=== PATIENT | male | born 1940 | race Caucasian/White ===

== ENCOUNTER 2016-05-26 15:18 | Emergency (ER) | payer MEDICARE, OTHER ==
[~2016-05-26] VITALS: Ht 180.3 cm; Wt 78.9 kg
[~2016-05-26 15:18] MED LIST: ASCO500T20 PO; ASP325T PO; ASP81TEC PO; CHOL10003 PO; DORZ10DR19 OU; DORZOLAMIDE OU; MU-V1TAB28 PO; OMEP20CA12 PO; OMEP20TA2 PO; OMEP40CA36 PO; SMV20T PO; TRAV5DRO OU; VITA150T PO
[2016-05-26 16:06] LABS: BASOPHILS % (AUTO) 0 % (0-10); EOSINOPHILS # (AUTO) 0.1 10^3/uL (0.0-0.3); EOSINOPHILS % (AUTO) 1 % (0-10); LYMPHOCYTES # (AUTO) 2.4 X 10^3 (1.0-4.0); LYMPHOCYTES % (AUTO) 20 % (12-44); MEAN CORPUSCULAR HEMOGLOBIN 32 PG (25-34); MEAN CORPUSCULAR HGB CONC 34 G/DL (32-36); MEAN CORPUSCULAR VOLUME 95 FL (80-99); MEAN PLATELET VOLUME 9.7 FL (7.4-10.4); MONOCYTES # (AUTO) 0.7 X 10^3 (0.0-1.0); MONOCYTES % (AUTO) 6 % (0-12); NEUTROPHILS # (AUTO) 8.6 X 10^3 (1.8-7.8); NEUTROPHILS % (AUTO) 73 % (42-75); PLATELET COUNT 235 10^3/uL (130-400); RED BLOOD COUNT 4.39 10^6/uL (4.35-5.85); RED CELL DISTRIBUTION WIDTH 14.3 % (10.0-14.5); WHITE BLOOD COUNT 11.8 10^3/uL (4.3-11.0)
--- NOTE | 2016-05-26 16:08 | ED Abdominal Pain ---
General Chief Complaint: Abdominal/GI Problems Stated Complaint: ABD TIGHTNESS/PAIN Source of Information: Patient Exam Limitations: No Limitations (FLORIN SANTOS MD) History of Present Illness Time Seen By Provider: 15:42 Initial Comments Here with a couple days of abdominal pain that is worsened and a tightness. He try to naproxen overnight which usually helps out his diverticulitis. That did not help. The tightness worsened today and he began to be concerned about his aortic aneurysm that he's had repaired previously. Really just wanted to get that checked out. He is not concerned about diverticulitis as it will normally respond to naproxen and he is willing to see his primary care provider on Sunday. Denies fever or chills. Had a normal bowel movement without blood today. Timing/Duration: 1-2 Days Severity/Quality: Moderate, Aching, Other (tightness) Location: Generalized Abdomen Radiation: No Radiation Activities at Onset: None Associated Symptoms: No Back Pain, No Fever/Chills, No Nausea/Vomiting, No Weakness (FLORIN SANTOS MD) Allergies and Home Medications Allergies Coded Allergies: ciprofloxacin (Unverified Adverse Reaction, "MADE ME FEEL TERRIBLE", 04/21) metronidazole (Unverified Adverse Reaction, "MADE ME FEEL TERRIBLE", 04/21) Home Medications Ascorbic Acid 500 Mg Tablet 500 MG PO DAILY (Reported) Aspirin 81 Mg Tabec 162 MG PO EVERY OTHER NIGHT (Reported) TAKES (2) 81MG TABS EVERY OTHER NIGHT Aspirin 325 Mg Tab 325 MG PO EVERY OTHER NIGHT (Reported) TAKES OPPOSITE NIGHTS OF THE 81MG TABS Cholecalciferol 1,000 Unit Tablet 1,000 UNIT PO DAILY (Reported) Mu-Vits-Min Th/Lycopene/Lutein 1 Each Tablet 1 TAB PO (Reported) Omeprazole 20 Mg Capsule.dr 40 MG PO DAILY (Reported) TAKES (2) 20 MG TABS DAILY Simvastatin 20 Mg Tab 20 MG PO HS (Reported) Timolol Maleate/Dorzolam Hcl 10 Ml Drops 2 DROPS OU BID (Reported) Travoprost 5 Ml Drops 1 DROP OU HS (Reported) Vitamin B Complex & Vit C No.4 150 Mg Tablet 150 MG PO DAILY (Reported) Review of Systems Constitutional: see HPINo chills, No fever EENTM: No Symptoms Reported Respiratory: No Symptoms Reported Cardiovascular: No Symptoms Reported Gastrointestinal: See HPI Abdominal PainDenies Nausea, Denies Rectal Bleeding , Denies Vomiting Genitourinary: No Symptoms Reported Musculoskeletal: no symptoms reported Skin: no symptoms reported Psychiatric/Neurological: No Symptoms Reported (FLORIN SANTOS MD) All Other Systems Reviewed Negative Unless Noted: Yes (FLORIN SANTOS MD) Past Cujrifw-Insaym-Vvxwvh Hx Patient Social History Alcohol Use: Occasionally Uses Recreational Drug Use: No Recent Foreign Travel: No Contact w/Someone Who Travel: No (FLORIN SANTOS MD) Immunizations Up To Date Date of Influenza Vaccine: Feb 28, 2013 (FLORIN SANTOS MD) Surgeries HX Surgeries: Yes Surgeries: Abdominal (FLORIN SANTOS MD) Respiratory Hx Respiratory Disorders: No (FLORIN SANTOS MD) Cardiovascular Hx Cardiac Disorders: Yes (FLORIN SANTOS MD) Neurological Hx Neurological Disorders: No (FLORIN SANTOS MD) Gastrointestinal Hx Gastrointestinal Disorders: Yes (DIVERTICULOSIS, HX COLON POLYPS) (FLORIN SANTOS MD) Musculoskeletal Hx Musculoskeletal Disorders: No (FLORIN SANTOS MD) Endocrine Hx Endocrine Disorders: No (FLORIN SANTOS MD) HEENT HX ENT Disorders: No (FLORIN SANTOS MD) Blood Transfusions Hx Blood Disorders: No (FLORIN SANTOS MD) Reviewed Nursing Assessment Reviewed/Agree w Nursing PMH: Yes (FLORIN SANTOS MD) Family Medical History Significant Family History: No Pertinent Family Hx (FLORIN SANTOS MD) Physical Exam Vital Signs Capillary Refill : (FLORIN SANTOS MD) General Appearance: WD/WN no apparent distress HEENT: PERRL/EOMI pharynx normal Neck: full range of motion supple Respiratory: lungs clear normal breath sounds Cardiovascular: regular rate, rhythm no murmur Peripheral Pulses: 2+ Dorsalis Pedis (R), 2+ Left Dors-Pedis (L), 2+ Radial Pulses (R), 2+ Radial Pulses (L) Gastrointestinal: non tender soft Extremities: non-tender normal inspection Back: normal inspection no vertebral tenderness Neurologic/Psychiatric: alert oriented x 3 Skin: normal color warm/dry (FLORIN SANTOS MD) Progress/Results/Core Measures Results/Orders Lab Results Laboratory Tests Test 05/26/16 15:00 Range/Units Alanine Aminotransferase (ALT/SGPT) 12 0-55 U/L Albumin 4.2 3.2-4.5 G/DL Alkaline Phosphatase 55 40-136 U/L Anion Gap 9 5-14 MMOL/L Aspartate Amino Transf (AST/SGOT) 13 5-34 U/L BUN/Creatinine Ratio 16 Basophils # (Auto) 0.0 0.0-0.1 10^3/uL Basophils (%) (Auto) 0 0-10 % Blood Urea Nitrogen 19 H 7-18 MG/DL Calcium Level 9.8 8.5-10.1 MG/DL Carbon Dioxide Level 24 21-32 MMOL/L Chloride Level 107 98-107 MMOL/L Creatinine 1.18 0.60-1.30 MG/DL Eosinophils # (Auto) 0.1 0.0-0.3 10^3/uL Eosinophils (%) (Auto) 1 0-10 % Estimat Glomerular Filtration Rate 60 Glucose Level 99 70-105 MG/DL Hematocrit 42 40-54 % Hemoglobin 14.0 13.3-17.7 G/DL Lymphocytes # (Auto) 2.4 1.0-4.0 X 10^3 Lymphocytes (%) (Auto) 20 12-44 % Mean Corpuscular Hemoglobin 32 25-34 PG Mean Corpuscular Hemoglobin Concent 34 32-36 G/DL Mean Corpuscular Volume 95 80-99 FL Mean Platelet Volume 9.7 7.4-10.4 FL Monocytes # (Auto) 0.7 0.0-1.0 X 10^3 Monocytes (%) (Auto) 6 0-12 % Neutrophils # (Auto) 8.6 H 1.8-7.8 X 10^3 Neutrophils (%) (Auto) 73 42-75 % Platelet Count 235 130-400 10^3/uL Potassium Level 3.9 3.6-5.0 MMOL/L Red Blood Count 4.39 4.35-5.85 10^6/uL Red Cell Distribution Width 14.3 10.0-14.5 % Sodium Level 140 135-145 MMOL/L Total Bilirubin 0.4 0.1-1.0 MG/DL Total Protein 7.1 6.4-8.2 G/DL White Blood Count 11.8 H 4.3-11.0 10^3/uL (ABDIFATAH KELLER MD) Progress Note : Progress Note Seen and evaluated. IV, labs and formal ultrasound ordered. Bedside ultrasound did not show any significant findings but we will get formal ultrasound to evaluate further given his history. Patient really would like to avoid CT scan if possible and just wants to rule out aortic aneurysm. He is okay with checking labs and ultrasound and is open to suggestion based on that data. Care transferred to Dr. KELLER at 1605. (FLORIN SANTOS MD) Departure Communication Progress Notes 1725 the patient is a 75-year-old male who presented with the abdominal pain after he arose this morning. He was concerned as it persisted that he was having trouble with his graft placed for a aortic aneurysm 4-5 years ago. However he has also had problems with diverticulitis on a fairly frequent basis. He normally treats these with naproxen. He did not particularly wish to have a CT scan done. Dr. Santos had done a abdominal sonogram but was unable to satisfactorily visualize the aorta because of bowel gas. Accordingly he sent the patient for a full scan in radiology. The results were not much better. The aorta was not satisfactorily visualized. After discussing this with the patient he still prefers not to have a CT scan and wishes to go home to try his naproxen based treatment schedule. The abdomen remains soft without guarding or rebound. There is diastasis of the rectus muscle. Bowel sounds are present. (ABDIFATAH KELLER MD) Impression Impression: Primary Impression: abdominal pain Disposition: 01 HOME, SELF-CARE Condition: Stable/Unchanged Departure-Patient Inst. Decision time for Depature: 17:30 (ABDIFATAH KELLER MD) Referrals: LIZZIE ESPITIA DO (PCP/Family) Primary Care Physician Patient Instructions: Acute Abdomen (Belly Pain), Adult (DC) Add. Discharge Instructions: All discharge instructions reviewed with patient and/or family. Voiced understanding. Resume your previous regimen including naproxen. If pain increases return to the ER. FLORIN SANTOS MD May 26, 2016 16:08 ABDIFATAH KELLER MD May 26, 2016 17:31
[2016-05-26 16:28] LABS: ALBUMIN 4.2 G/DL (3.2-4.5); BILIRUBIN,TOTAL 0.4 MG/DL (0.1-1.0); CALCIUM 9.8 MG/DL (8.5-10.1); CREATININE SERUM 1.18 MG/DL (0.60-1.30); POTASSIUM 3.9 MMOL/L (3.6-5.0); TOTAL PROTEIN 7.1 G/DL (6.4-8.2)
--- NOTE | 2016-05-26 16:59 | Diagnostic Imaging Report ---
PROCEDURE: US abdomen complete. TECHNIQUE: Multiple real-time grayscale images were obtained over the abdomen in various projections. INDICATION: Right upper quadrant pain. FINDINGS: Liver is upper limits of normal measuring 19 cm in long axis. There is question of some intrahepatic biliary radical dilatation. No focal liver lesions are demonstrated. Gallbladder appears normal with no wall thickening or pericholecystic edema. There is a large amount of gas obscuring the majority of the remainder of the abdomen. The kidneys are visualized and appear normal measuring approximately 10 x 5.3 x 5.5 cm on the right and 10 x 5.9 x 5.6 cm on the left. IMPRESSION: Very limited study due to large amount of abdominal gas. There is question of some intrahepatic biliary duct dilatation. Would consider CT scan of the abdomen and pelvis. Dictated by: Dictated on workstation # [id number]
[2016-05-26 17:41] VITALS: BP 141/94
== END 2016-05-26 17:45 | disposition home or self-care (01) ==
LOC: EDUNIT# 15:18 → ER 15:19
DX: R10.30 Lower abdominal pain, unspecified (principal); K57.30 Diverticulosis of large intestine without perforation or abscess without bleeding; Z79.82 Long term (current) use of aspirin; Z79.899 Other long term (current) drug therapy; Z95.828 Presence of other vascular implants and grafts
CPT/HCPCS: 36415; 76700; 80053; 85025

== ENCOUNTER → 2017-09-04 | Outpatient (CLI) | payer MEDICARE, OTHER ==
[~2017-09-04] MED LIST changes: +LISI10TA2 PO; +METO-351 PO
== END ==
LOC: CARD 09:58
PROVIDERS: ATTEND Internal Medicine
DX: R00.2 Palpitations (principal)
CPT/HCPCS: 93225; 93226

== ENCOUNTER 2017-09-11 15:00 | Outpatient (CLI) | payer MEDICARE, OTHER ==
[~2017-09-11 15:00] MED LIST changes: -LISI10TA2 PO; -METO-351 PO
== END 2017-09-11 15:42 | disposition home or self-care (01) ==
LOC: SLEEP 15:00
PROVIDERS: ATTEND Internal Medicine
DX: G47.10 Hypersomnia, unspecified (principal)

== ENCOUNTER → 2017-09-18 | Outpatient (CLI) | payer MEDICARE, OTHER ==
[~2017-09-18] MED LIST changes: +LISI10TA2 PO; +METO-351 PO
== END ==
LOC: CARD 09:24
PROVIDERS: ATTEND Internal Medicine Cardiovascular Disease
DX: I47.2 Ventricular tachycardia (principal); E78.2 Mixed hyperlipidemia; I71.4 Abdominal aortic aneurysm, without rupture; K21.9 Gastro-esophageal reflux disease without esophagitis; I08.1 Rheumatic disorders of both mitral and tricuspid valves; Z82.3 Family history of stroke
CPT/HCPCS: 93306

== ENCOUNTER → 2017-09-26 | Outpatient (CLI) | payer MEDICARE, OTHER ==
[~2017-09-26] VITALS: Ht 180.3 cm; Wt 88.5 kg
[~2017-09-26] MED LIST changes: +CATHETER FLUSH 10 ML SYR IV PRN
[2017-09-26 09:09] VITALS: BP 152/85
[2017-09-26 09:17] VITALS: BP 162/98
[2017-09-26 09:19] VITALS: BP 233/105
[2017-09-26 09:22] VITALS: BP 177/102
--- NOTE | 2017-09-26 17:13 | STRESS TEST ---
DATE OF SERVICE: 09/26/2017 EXERCISE MYOVIEW STRESS TEST REPORT REFERRING PHYSICIAN: Dr. Ley. TEST DATE: 09/26/2017. Baseline heart rate is 61, baseline blood pressure 152/85. Baseline EKG is sinus rhythm with right bundle branch block. In summary, the patient was injected with 10.61 mCi of technetium-99 Myoview and the resting images were obtained. Then, the patient started exercising with a baseline heart rate, blood pressure and EKG mentioned above. The patient started having frequent PVCs, had occasional ventricular couplets and ventricular bigeminy. At peak stress level, he was injected with 30.0 mCi of technetium-99 Myoview. The patient was able to exercise for a total of 5 minutes on standard Trevor protocol, achieving maximum heart rate of 143, which is 100% of maximum expected heart rate. With peak exercise level, blood pressure was 243/112. During recovery, heart rate and blood pressure returned to baseline. EKG returned to baseline. The resting and stress images were reviewed and compared in the short axis, horizontal long axis, and vertical long axis views. Review of the images showed decreased uptake involving the mid to apical inferior wall, inferolateral wall and through apex with mild reversibility. SSS is 10, SDS 1, TID value 1.06. On the gated images, the left ventricle appeared to be dilated with end diastolic volume 153 and systolic volume 87, hypokinesia at the inferior wall and inferolateral wall with calculated ejection fraction 43%. CONCLUSION: 1. Fair exercise tolerance, a total of 5 minutes on a standard Trevor protocol, total of 7 METS achieving 100% of maximum expected heart rate. 2. Severe hypertensive response to exercise, returned to baseline during recovery. 3. Baseline right bundle branch block with frequent PVCs, ventricular bigeminy and ventricular couplets during test. 4. Reversal ischemia involving the whole inferior wall, inferolateral wall, inferior apex, true apex. 5. Dilated left ventricle with hypokinesia of the inferior wall, inferolateral wall with calculated ejection fraction 43%. Job ID: [id number] DocumentID: [id number] Dictated Date: 09/26/2017 13:43:14 Retail Zone Specialist Date: 09/26/2017 17:13:20 Dictated By: SREE CHUNG MD
== END ==
LOC: CARD 07:29
PROVIDERS: ATTEND Internal Medicine Cardiovascular Disease
DX: I47.2 Ventricular tachycardia (principal); E78.2 Mixed hyperlipidemia; I71.4 Abdominal aortic aneurysm, without rupture; K21.9 Gastro-esophageal reflux disease without esophagitis; Z82.3 Family history of stroke
CPT/HCPCS: 78452; 93017

== ENCOUNTER 2017-09-28 07:03 | Day surgery (SDC) | payer MEDICARE, OTHER ==
[2017-09-28] VITALS (10 sets, daily range): BP systolic 112–130; BP diastolic 68–95
[~2017-09-28] VITALS: Ht 180.3 cm; Wt 88.9 kg
[~2017-09-28 07:03] MED LIST changes: -CATHETER FLUSH 10 ML SYR IV PRN; -LISI10TA2 PO; -METO-351 PO
[2017-09-28] MEDS ORDERED: NS IV 1000 ML 1,000 ML IV SCH ×3 (07:07→09:37)
--- OUTSIDE RECORDS SUMMARY | 2017-09-28 07:07 | XMS REPORT | Continuity of Care Document ---
Author Author [facility] Organization [facility] Address Unknown Phone Unavailable Allergies Active Description Code Type Severity Reaction Onset Reported/Identified Relationship to Patient Clinical Status Yes ciprofloxacin [id number] Drug Allergy Unknown "MADE ME FEEL T 04/21/2013 Yes metronidazole [id number] Drug Allergy Unknown "MADE ME FEEL T 04/21/2013 Medications There is no data. Problems Date Dx Coded Attending Type Code Diagnosis Diagnosed By 08/04/2011 Ot 455.0 INT HEMORRHOID W/O COMPL 08/04/2011 Ot 455.3 EXT HEMORRHOID W/O COMPL 08/04/2011 Ot 562.10 DIVERTICULOSIS COLON (W/O MENT OF HEMORR 08/04/2011 Ot 564.00 UNSPEC CONSTIPATION 08/04/2011 Ot V12.72 PERSONAL HISTORY OF COLONIC POLYPS 08/04/2011 Ot V67.09 SURGERY FOLLOW-UP, OTHER SURGERY 05/26/2016 Ot V72.84 EXAM PRE- OPERATIVE NOS 05/26/2016 DAVY CHAND, CHRISTIE Eller Ot 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 05/26/2016 CHRISTIE BHATTI MD Ot 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 05/26/2016 CHRISTIE BHATTI MD Ot V72.63 PRE-PROCEDURAL LABORATORY EXAMINATION 05/26/2016 CHRISTIE BHATTI MD Ot V74.8 SCREEN-BACTERIAL DIS NEC 05/26/2016 FLORIN SANTOS MD Ot K57.30 DVRTCLOS OF LG INT W/O PERFORATION OR AB 05/26/2016 FLORIN SANTOS MD Ot R10.30 LOWER ABDOMINAL PAIN, UNSPECIFIED 05/26/2016 FLORIN SANTOS MD Ot 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 05/26/2016 FLORIN SANTOS MD Ot Z79.899 OTHER [facility] (CURRENT) DRUG THERAPY 05/26/2016 FLORIN SANTOS MD Ot Z95.828 PRESENCE OF OTHER VASCULAR IMPLANTS AND 06/01/2016 Ot V72.84 EXAM PRE- OPERATIVE NOS 06/01/2016 CHRISTIE BHATTI MD Ot 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 06/01/2016 CHRISTIE BHATTI MD Ot 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 06/01/2016 CHRISTIE BHATTI MD Ot V72.63 PRE-PROCEDURAL LABORATORY EXAMINATION 06/01/2016 CHRISTIE BHATTI MD Ot V74.8 SCREEN-BACTERIAL DIS NEC 09/03/2017 ESPITIA DOLIZZIE Ot R00.2 PALPITATIONS 09/03/2017 ESPITIA DO, LIZZIE Beckham Ot R00.2 PALPITATIONS 09/03/2017 CHRISTIE BHATTI MD Ot 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 09/03/2017 CHRISTIE BHATTI MD Ot 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 09/03/2017 CHRISTIE BHATTI MD Ot V72.63 PRE-PROCEDURAL LABORATORY EXAMINATION 09/03/2017 CHRISTIE BHATTI MD Ot V74.8 SCREEN-BACTERIAL DIS NEC 09/03/2017 ESPITIA DOLIZZIE Ot R00.2 PALPITATIONS 09/05/2017 ESPITIA DOLIZZIE Ot R00.2 PALPITATIONS 09/13/2017 LIZZIE ESPITIA DO Ot G47.10 HYPERSOMNIA, UNSPECIFIED 09/19/2017 SREE CHUNG MD Ot E78.2 MIXED HYPERLIPIDEMIA 09/19/2017 SREE CHUNG MD Ot I08.1 RHEUMATIC DISORDERS OF BOTH MITRAL AND T 09/19/2017 SREE CHUNG MD Ot I47.2 VENTRICULAR TACHYCARDIA 09/19/2017 SREE CHUNG MD, Ot I71.4 ABDOMINAL AORTIC ANEURYSM, WITHOUT RUPTU 09/19/2017 SREE CHUNG MD Ot K21.9 GASTRO-ESOPHAGEAL REFLUX DISEASE WITHOUT 09/19/2017 SREE CHUNG MD, Ot Z82.3 FAMILY HISTORY OF STROKE Procedures There is no data. Results Test Result Range Complete blood count (CBC) with automated white blood cell (WBC) differential - 05/26/16 15:00 Blood leukocytes automated count (number/volume) 11.8 10*3/uL 4.3-11.0 Blood erythrocytes automated count (number/volume) 4.39 10*6/uL 4.35-5.85 Venous blood hemoglobin measurement (mass/volume) 14.0 g/dL 13.3-17.7 Blood hematocrit (volume fraction) 42 % 40-54 Automated erythrocyte mean corpuscular volume 95 [foz_us] 80-99 Automated erythrocyte mean corpuscular hemoglobin (mass per erythrocyte) 32 pg 25-34 Automated erythrocyte mean corpuscular hemoglobin concentration measurement ( mass/volume) 34 g/dL 32-36 Automated erythrocyte distribution width ratio 14.3 % 10.0-14.5 Automated blood platelet count (count/volume) 235 10*3/uL 130-400 Automated blood platelet mean volume measurement 9.7 [foz_us] 7.4-10.4 Automated blood neutrophils/100 leukocytes 73 % 42-75 Automated blood lymphocytes/100 leukocytes 20 % 12-44 Blood monocytes/100 leukocytes 6 % 0-12 Automated blood eosinophils/100 leukocytes 1 % 0-10 Automated blood basophils/100 leukocytes 0 % 0-10 Blood neutrophils automated count (number/volume) 8.6 10*3 1.8-7.8 Blood lymphocytes automated count (number/volume) 2.4 10*3 1.0-4.0 Blood monocytes automated count (number/volume) 0.7 10*3 0.0-1.0 Automated eosinophil count 0.1 10*3/uL 0.0-0.3 Automated blood basophil count (count/volume) 0.0 10*3/uL 0.0-0.1 Comprehensive metabolic panel - 05/26/16 15:00 Serum or plasma sodium measurement (moles/volume) 140 mmol/L 135-145 Serum or plasma potassium measurement (moles/volume) 3.9 mmol/L 3.6-5.0 Serum or plasma chloride measurement (moles/volume) 107 mmol/L 98-107 Carbon dioxide 24 mmol/L 21-32 Serum or plasma anion gap determination (moles/volume) 9 mmol/L 5-14 Serum or plasma urea nitrogen measurement (mass/volume) 19 mg/dL 7-18 Serum or plasma creatinine measurement (mass/volume) 1.18 mg/dL 0.60-1.30 Serum or plasma urea nitrogen/creatinine mass ratio 16 NRG Serum or plasma creatinine measurement with calculation of estimated glomerular filtration rate 60 NRG Serum or plasma glucose measurement (mass/volume) 99 mg/dL 70-105 Serum or plasma calcium measurement (mass/volume) 9.8 mg/dL 8.5-10.1 Serum or plasma total bilirubin measurement (mass/volume) 0.4 mg/dL 0.1-1.0 Serum or plasma alkaline phosphatase measurement (enzymatic activity/volume) 55 U/L 40-136 Serum or plasma aspartate aminotransferase measurement (enzymatic activity/ volume) 13 U/L 5-34 Serum or plasma alanine aminotransferase measurement (enzymatic activity/volume ) 12 U/L 0-55 Serum or plasma protein measurement (mass/volume) 7.1 g/dL 6.4-8.2 Serum or plasma albumin measurement (mass/volume) 4.2 g/dL 3.2-4.5 Encounters ACCT No. Visit Date/Time Discharge Status Pt. Type Provider Facility Loc./Unit Complaint [id number] 09/19/2017 11:30:00 09/19/2017 23:59:59 CLS Preadmit SREE CHUNG MD [facility] CARD AAA,GERD,V-TACH [id number] 09/18/2017 09:24:00 09/18/2017 23:59:59 CLS Outpatient SREE CHUNG MD [facility] CARD AAA,GERD,V-TACH [id number] 09/11/2017 15:00:00 09/11/2017 15:42:00 DIS Outpatient LIZZIE ESPITIA DO [facility] SLEEP HYPERSOMNIA, UNSPECIFIED G47.10 [id number] 09/04/2017 09:58:00 09/04/2017 23:59:59 CLS Outpatient LIZZIE ESPITIA DO [facility] CARD R00.2 PALPITATIONS [id number] 05/26/2016 15:19:00 05/26/2016 17:45:00 DIS Emergency FLORIN SANTOS MD [facility] ER ABD TIGHTNESS/PAIN [id number] 04/21/2013 10:22:00 04/21/2013 23:59:59 CLS Outpatient CHRISTIE BHATTI MD [facility] PREOP RIGHT SUBMANDIBULAR STONE [id number] 03/31/2013 07:45:00 03/31/2013 23:59:59 CLS Outpatient CHRISTIE BHATTI MD [facility] RAD RT SUBMANDILAR GLAND MASS [id number] 08/04/2011 09:08:00 Document Registration [id number] 08/02/2011 08:03:00 Document Registration
[2017-09-28] MEDS ORDERED: LIDOCAINE 1% INJ 20 ML 20 ML VIAL ONE (07:09)
[2017-09-28] MEDS ORDERED: NS IV 1000 ML 1,000 ML ONE (07:09)
[2017-09-28] MEDS ORDERED: HEParin (CATH LAB) 2,000 ML IV ONE (07:09)
--- NOTE | 2017-09-28 07:31 | Diagnostic Imaging Report ---
EXAM: CHEST 1 VIEW, AP/PA ONLY INDICATION: ABN STRESS, HTN, CAD, AAA COMPARISON: None. FINDINGS: Normal heart size and central pulmonary vascularity. Calcified aorta. No focal pulmonary opacity, pleural effusion or pneumothorax. No acute osseous findings. IMPRESSION: No acute cardiopulmonary findings. Dictated by: Dictated on workstation # [id number]
[2017-09-28 07:33] LABS: HEMOGLOBIN 12.4 G/DL (13.3-17.7); MEAN PLATELET VOLUME 10.3 FL (7.4-10.4); RED BLOOD COUNT 3.86 10^6/uL (4.35-5.85); RED CELL DISTRIBUTION WIDTH 15.1 % (10.0-14.5); WHITE BLOOD COUNT 6.1 10^3/uL (4.3-11.0)
[2017-09-28 07:36] LABS: BILIRUBIN,URINE 1+ (NEGATIVE); CLARITY,URINE CLEAR; COLOR,URINE BROWN; GLUCOSE, URINE (UA) NEGATIVE (NEGATIVE); KETONES,URINE 1+ (NEGATIVE); LEUKOCYTE ESTERASE ,URINE 1+ (NEGATIVE); NITRITE,URINE NEGATIVE (NEGATIVE); PH,URINE 5 (5-9); PROTEIN,URINE 1+ (NEGATIVE); UROBILINOGEN,URINE 4 MG/DL (NORMAL)
[2017-09-28] MEDS ORDERED: METO-351 PO (07:38)
[2017-09-28] MEDS ORDERED: LISI10TA2 PO (07:38)
[2017-09-28 07:48] LABS: INR 1.1 (0.8-1.4); PROTHROMBIN TIME PATIENT 13.7 SEC (12.2-14.7)
[2017-09-28 07:50] LABS: BACTERIA,URINE TRACE /HPF; HYALINE CASTS, URINE 0-2 /LPF
[2017-09-28 07:57] LABS: BILIRUBIN,TOTAL 0.3 MG/DL (0.1-1.0); CALCIUM 9.6 MG/DL (8.5-10.1); CREATININE SERUM 1.37 MG/DL (0.60-1.30); POTASSIUM 4.2 MMOL/L (3.6-5.0); TOTAL PROTEIN 6.6 GM/DL (6.4-8.2)
[2017-09-28] MEDS ORDERED: MIDAZOLAM 5 MG/5 ML (VERSED) VIAL ONE (08:24)
[2017-09-28] MEDS ORDERED: fentaNYL INJECTION 100 MCG/2 ML AMP ONE (08:24)
[2017-09-28] MEDS ORDERED: EPTIFIBATIDE BOLUS 0 ML IV ONE (09:20)
[2017-09-28] MEDS ORDERED: HEParin 1000 UNIT/ML (10ML VIAL) FOR BOLUS ONE (09:20)
[2017-09-28] MEDS ORDERED: NITRO DRIP 25000 MCG/D5W 0 ML IV ONE (09:21)
--- NOTE | 2017-09-28 09:37 | Cardiac Procedure Note-CS/ASA ---
Pre-Procedure Note Pre-Op Procedure Note H&P Reviewed The H&P was reviewed, patient examined and no changes noted. Date H&P Reviewed: Sep 28, 2017 Time H&P Reviewed: 09:37 Conscious Sedation Pre-Proced Time Reviewed: 09:37 ASA Class: 3 Airway Mallampati Classification: ([place] appropriate class) I. II. III, IV Lungs Heart ASA score ASA 1: a normal healthy patient ASA 2: a patient with a mild systemic disease (mid diabetes, controlled hypertension, obesity x ASA 3: a patient with a severe systemic disease that limits activity (angina , COPD, prior Myocardial infarction) ASA 4: a patient with an incapacitating disease that is a constant threat to life (CHF, renal failure) ASA 5: a moribund patient not expected to survive 24 hrs. (ruptured aneurysm) ASA 6: a declared brain patient whose organs are being harvested. For emergent operations, add the letter E after the classification Grade 3 Sedation Plan: Analgesia, Amnesia, Plan communicated to team members, Discussed options with patient/fam, Discussed risks with patient/fam Note The patient is an appropriate candidate to undergo the planned procedure, sedation, and anesthesia. The patient immediately re-assessed prior to indication. SREE CHUNG MD Sep 28, 2017 09:37
[2017-09-28] MEDS ORDERED: PATIENT MAY USE OWN MEDS, ALL PO SCH (09:45)
--- NOTE | 2017-09-28 10:02 | Cardiac Cath Report ---
Cardiac Cath Report Physician (s)/Gas Technician (s) Physician SREE CHUNG MD Pre-Procedure Diagnosis Pre-Procedure Diagnosis: Coronary artery disease Post-Procedure Note Procedure Start Date: Sep 28, 2017 Name of Procedure: Left heart catheterization, left ventriculogram Aortic arch angiogram Abdominal aortogram Findings/Procedure Note PROCEDURE NOTE: 77 years old gentleman with history of abdominal aortic aneurysm, hypertension hyperlipidemia, has been having palpitation, underwent a stress test which was abnormal subsequently scheduled for cardiac catheterization. After explaining the procedure to the patient, all pros and cons were explained , all questions were answered. The patient signed the consent and then he was placed on the cardiac catheterization laboratory. Groin was prepped SL fashion local anesthesia was used. Sheath placed in the right femoral artery. I had difficulties advancing the wire through the abdominal aorta due to the aortic stent, I used a long stork wire as an exchange wire, Viraj right and left catheter were used to access the coronary system. Pigtail was used to access the left ventricular cavity. Left ventriculogram was done Aortic arch angiogram was done to evaluate the aortic arch due to calcification and enlarged arch Abdominal aortogram was done At the end of the procedure the sheath was removed. Closure device was used FINDINGS: Hemodynamics LV 116/12, end-diastolic pressure of 12 Aorta 115/58 mean of 79 ANATOMY: Left Main is free of obstructive disease Left Anterior Descending has severe disease at the midportion involving the ostium of the second diagonal branch Left Circumflex is nondominant with mild disease nonobstructive disease Right Coronory Artery is a large dominant artery with severe stenosis at the proximal and distal portion LV Gram was done in the right anterior oblique position, left ventricle is normal in size with normal contractility estimated ejection fraction 50 percent Aorta evaluation done with aortic arch angiogram and abdominal aortogram Aortic arch is prominent, no dissection or aneurysm, calcified great neck vessels, the right subclavian and right carotid had mild calcification of the ostium, left carotid is slightly tortuous. The left subclavian has mild calcification. Abdominal aortogram done, there is aortic stent and bilateral iliac stent that is patent, the renal arteries bilaterally appeared normal, SMA is normal CONCLUSION: 1. Severe stenosis at the mid LAD involving the ostium of the diagonal artery, severe stenosis at the proximal and distal right coronary artery 2. Prominent aortic arch and calcified neck vessels 3. Normal left ventricular size and systolic function, estimated ejection fraction 50 percent 4. Patent abdominal aortic stent with mild atherosclerotic disease DISCUSSION AND RECOMMENDATION: Patient will be evaluated for possible CABG or high risk intervention. Arrangement for transfer to [facility] was made. Hospital course Patient was admitted and arrangements were made to transfer him to [facility] for evaluation possible bypass surgery Anesthesia Type: Conscious Sedation Estimated blood loss (mL): 15 ml Contrast Amount: 100 ml Total Radiation Dose: 753 mgy Post-Procedure Diagnosis Post-operative diagnosis: Coronary artery disease Peripheral arterial disease Hypertension Hyperlipidemia SREE CHUNG MD Sep 28, 2017 10:02
== END 2017-09-28 13:15 | disposition short-term general hospital (02) ==
LOC: CATH 07:03 → ICU 09:55 → CATH 13:15
PROVIDERS: ATTEND Internal Medicine Cardiovascular Disease
DX: I25.10 Atherosclerotic heart disease of native coronary artery without angina pectoris (principal); I73.9 Peripheral vascular disease, unspecified; E78.2 Mixed hyperlipidemia; I11.0 Hypertensive heart disease with heart failure; F17.210 Nicotine dependence, cigarettes, uncomplicated; I47.2 Ventricular tachycardia; I50.9 Heart failure, unspecified; K21.9 Gastro-esophageal reflux disease without esophagitis; I71.4 Abdominal aortic aneurysm, without rupture; Z79.899 Other long term (current) drug therapy; Z82.49 Family history of ischemic heart disease and other diseases of the circulatory system
CPT/HCPCS: 36415; 71045; 75625; 80053; 81000; 85027; 85610; 85730; 87081; 87088; 93458

== ENCOUNTER 2018-08-26 09:12 | Outpatient (CLI) | payer MEDICARE, OTHER ==
[~2018-08-26] VITALS: Ht 180.3 cm; Wt 88.9 kg
[~2018-08-26 09:12] MED LIST changes: +LISI10TA2 PO; +METO-351 PO
[2018-08-26] MEDS ORDERED: MULT-1056 PO (16:06)
[2018-08-26] MEDS ORDERED: LORA10TA7 PO (16:06)
[2018-08-26] MEDS ORDERED: TRAV5DRO OU (16:06)
[2018-08-26] MEDS ORDERED: PANT40TA3 PO (16:06)
[2018-08-26] MEDS ORDERED: ASCO500T7 PO (16:06)
[2018-08-26] MEDS ORDERED: CLOP75TA69 PO (16:06)
[2018-08-26] MEDS ORDERED: ATOR40TA70 PO (16:06)
[2018-08-26] MEDS ORDERED: CHOL10003 PO (16:06)
[2018-08-26] MEDS ORDERED: VITA1TAB17 PO (16:06)
[2018-08-26] MEDS ORDERED: METO-387 PO (16:06)
== END 2018-08-26 16:07 | disposition home or self-care (01) ==
LOC: PREOP 09:12
PROVIDERS: ATTEND Surgery
DX: Z01.818 Encounter for other preprocedural examination (principal)

== ENCOUNTER 2018-08-28 12:10 | Day surgery (SDC) | payer MEDICARE, OTHER ==
[~2018-08-28] VITALS: Ht 180.3 cm; Wt 88.9 kg
[~2018-08-28 12:10] MED LIST changes: +ASCO500T7 PO; +ATOR40TA70 PO; +CLOP75TA69 PO; +LORA10TA7 PO; +METO-387 PO; +MULT-1056 PO; +PANT40TA3 PO; +VITA1TAB17 PO
[2018-08-28] MEDS ORDERED: ATROPINE 0.4 MG/ML 20 ML VIAL IV ONE (12:11)
--- OUTSIDE RECORDS SUMMARY | 2018-08-28 12:13 | XMS REPORT | Continuity of Care Document ---
Author Organization Unknown Address Unknown Allergies Active Description Code Type Severity Reaction Onset Reported/Identified Relationship to Patient Clinical Status Yes ciprofloxacin [id number] Drug Allergy Unknown "MADE ME FEEL T 09/26/2017 Yes metronidazole [id number] Drug Allergy Unknown "MADE ME FEEL T 09/26/2017 Medications There is no data. 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 05/26/2016 CHRISTIE BHATTI MD Ot V72.63 PRE-PROCEDURAL LABORATORY EXAMINATION 05/26/2016 CHRISTIE BHATTI MD Ot V74.8 SCREEN-BACTERIAL DIS NEC 05/26/2016 FLORIN SANTOS MD Ot K57.30 DVRTCLOS OF LG INT W/O PERFORATION OR AB 05/26/2016 FLORIN SANTOS MD Ot R10.30 LOWER ABDOMINAL PAIN, UNSPECIFIED 05/26/2016 FLORIN SANTOS MD Ot Z79.82 SHELTER (CURRENT) USE OF ASPIRIN 05/26/2016 FLORIN SANTOS MD Ot Z79.899 OTHER DOCTOR OSTEOPATHIC (CURRENT) DRUG THERAPY 05/26/2016 FLORIN SANTOS MD Ot Z95.828 PRESENCE OF OTHER VASCULAR IMPLANTS AND 06/01/2016 Ot V72.84 EXAM PRE- OPERATIVE NOS 06/01/2016 CHRISTIE BHATTI MD Ot 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 06/01/2016 CHRISTIE BHATTI MD Ot 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 06/01/2016 CHRISTIE BHATTI MD Ot V72.63 PRE-PROCEDURAL LABORATORY EXAMINATION 06/01/2016 CHRISTIE BHATTI MD Ot V74.8 SCREEN-BACTERIAL DIS NEC 09/03/2017 LZIZIE ESPITIA DO Ot R00.2 PALPITATIONS 09/03/2017 LIZZIE ESPITIA DO Ot R00.2 PALPITATIONS 09/03/2017 CHRISTIE BHATTI MD Ot 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 09/03/2017 CHRISTIE BHATTI MD Ot 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 09/03/2017 CHRISTIE BHATTI MD Ot V72.63 PRE-PROCEDURAL LABORATORY EXAMINATION 09/03/2017 CHRISTIE BHATTI MD Ot V74.8 SCREEN-BACTERIAL DIS NEC 09/03/2017 LIZZIE ESPITIA DO Ot R00.2 PALPITATIONS 09/05/2017 LIZZIE ESPITIA DO Ot R00.2 PALPITATIONS 09/11/2017 LIZZIE ESPITIA DO Ot G47.10 HYPERSOMNIA, UNSPECIFIED 09/13/2017 LIZZIE ESPITIA DO Ot G47.10 HYPERSOMNIA, UNSPECIFIED 09/19/2017 SREE CHUNG MD Ot E78.2 MIXED HYPERLIPIDEMIA 09/19/2017 SREE CHUNG MD Ot I08.1 RHEUMATIC DISORDERS OF BOTH MITRAL AND T 09/19/2017 SREE CHUNG MD Ot I47.2 VENTRICULAR TACHYCARDIA 09/19/2017 SREE CHUNG MD Ot I71.4 ABDOMINAL AORTIC ANEURYSM, WITHOUT RUPTU 09/19/2017 SREE CHUNG MD Ot K21.9 GASTRO-ESOPHAGEAL REFLUX DISEASE WITHOUT 09/19/2017 SREE CHUNG MD Ot Z82.3 FAMILY HISTORY OF STROKE 09/26/2017 LIZZIE ESPITIA DO Ot R00.2 PALPITATIONS 09/27/2017 SREE CHUNG MD Ot E78.2 MIXED HYPERLIPIDEMIA 09/27/2017 SREE CHUNG MD Ot I47.2 VENTRICULAR TACHYCARDIA 09/27/2017 SREE CHUNG MD Ot I71.4 ABDOMINAL AORTIC ANEURYSM, WITHOUT RUPTU 09/27/2017 SREE CHUNG MD Ot K21.9 GASTRO-ESOPHAGEAL REFLUX DISEASE WITHOUT 09/27/2017 JULIET MD, BASHAR J Ot Z82.3 FAMILY HISTORY OF STROKE 09/28/2017 SREE CHUNG MD Ot E78.2 MIXED HYPERLIPIDEMIA 09/28/2017 SREE CHUNG MD Ot F17.210 NICOTINE DEPENDENCE, CIGARETTES, UNCOMPL 09/28/2017 SREE CHUNG MD Ot I11.0 HYPERTENSIVE HEART DISEASE WITH HEART FA 09/28/2017 SREE CHUNG MD Ot I25.10 ATHSCL HEART DISEASE OF [place] CORONARY 09/28/2017 SREE CHUNG MD Ot I47.2 VENTRICULAR TACHYCARDIA 09/28/2017 SREE CHUNG MD Ot I50.9 HEART FAILURE, UNSPECIFIED 09/28/2017 SREE CHUNG MD Ot I71.4 ABDOMINAL AORTIC ANEURYSM, WITHOUT RUPTU 09/28/2017 SREE CHUNG MD Ot I73.9 PERIPHERAL VASCULAR DISEASE, UNSPECIFIED 09/28/2017 SREE CHUNG MD Ot K21.9 GASTRO-ESOPHAGEAL REFLUX DISEASE WITHOUT 09/28/2017 SREE CHUNG MD Ot Z79.899 OTHER DOCTOR OSTEOPATHIC (CURRENT) DRUG THERAPY 09/28/2017 SREE CHUNG MD Ot Z82.49 FAMILY HX OF [place] HEART DIS AND OTH DI 10/01/2017 SREE CHUNG MD Ot E78.5 HYPERLIPIDEMIA, UNSPECIFIED 10/01/2017 SREE CHUNG MD Ot F17.210 NICOTINE DEPENDENCE, CIGARETTES, UNCOMPL 10/01/2017 SREE CHUNG MD Ot I11.0 HYPERTENSIVE HEART DISEASE WITH HEART FA 10/01/2017 SREE CHUNG MD Ot I25.10 ATHSCL HEART DISEASE OF [place] CORONARY 10/01/2017 SREE CHUNG MD Ot I47.1 SUPRAVENTRICULAR TACHYCARDIA 10/01/2017 SREE CHUNG MD Ot I50.9 HEART FAILURE, UNSPECIFIED 10/01/2017 SREE CHUNG MD Ot I73.9 PERIPHERAL VASCULAR DISEASE, UNSPECIFIED 10/01/2017 SREE CHUNG MD Ot Z79.899 OTHER DOCTOR OSTEOPATHIC (CURRENT) DRUG THERAPY 10/01/2017 SREE CHUNG MD Ot Z82.49 FAMILY HX OF [place] HEART DIS AND OTH DI 10/01/2017 SREE CHUNG MD Ot E78.2 MIXED HYPERLIPIDEMIA 10/01/2017 SREE CHUNG MD Ot F17.210 NICOTINE DEPENDENCE, CIGARETTES, UNCOMPL 10/01/2017 SREE CHUNG MD Ot I11.0 HYPERTENSIVE HEART DISEASE WITH HEART FA 10/01/2017 SREE CHUNG MD Ot I25.10 ATHSCL HEART DISEASE OF [place] CORONARY 10/01/2017 SREE CHUNG MD Ot I47.2 VENTRICULAR TACHYCARDIA 10/01/2017 SREE CHUNG MD Ot I50.9 HEART FAILURE, UNSPECIFIED 10/01/2017 SREE CHUNG MD Ot I71.4 ABDOMINAL AORTIC ANEURYSM, WITHOUT RUPTU 10/01/2017 SREE CHUNG MD Ot I73.9 PERIPHERAL VASCULAR DISEASE, UNSPECIFIED 10/01/2017 SREE CHUNG MD Ot K21.9 GASTRO-ESOPHAGEAL REFLUX DISEASE WITHOUT 10/01/2017 SREE CHUNG MD Ot Z79.899 OTHER SHELTER (CURRENT) DRUG THERAPY 10/01/2017 SREE CHUNG MD Ot Z82.49 FAMILY HX OF [place] HEART DIS AND OTH DI 10/02/2017 SREE CHUNG MD Ot E78.2 MIXED HYPERLIPIDEMIA 10/02/2017 SREE CHUNG MD Ot I47.2 VENTRICULAR TACHYCARDIA 10/02/2017 SREE CHUNG MD Ot I71.4 ABDOMINAL AORTIC ANEURYSM, WITHOUT RUPTU 10/02/2017 SREE CHUNG MD Ot K21.9 GASTRO-ESOPHAGEAL REFLUX DISEASE WITHOUT 10/02/2017 SREE CUHNG MD Ot Z82.3 FAMILY HISTORY OF STROKE 10/02/2017 SREE CHUNG MD Ot E78.2 MIXED HYPERLIPIDEMIA 10/02/2017 SREE CHUNG MD Ot F17.210 NICOTINE DEPENDENCE, CIGARETTES, UNCOMPL 10/02/2017 SREE CHUNG MD Ot I11.0 HYPERTENSIVE HEART DISEASE WITH HEART FA 10/02/2017 SREE CHUNG MD Ot I25.10 ATHSCL HEART DISEASE OF [place] CORONARY 10/02/2017 SREE CHUNG MD Ot I47.2 VENTRICULAR TACHYCARDIA 10/02/2017 SREE CHUNG MD Ot I50.9 HEART FAILURE, UNSPECIFIED 10/02/2017 SREE CHUNG MD Ot I71.4 ABDOMINAL AORTIC ANEURYSM, WITHOUT RUPTU 10/02/2017 SREE CHUNG MD Ot I73.9 PERIPHERAL VASCULAR DISEASE, UNSPECIFIED 10/02/2017 SREE CHUNG MD Ot K21.9 GASTRO-ESOPHAGEAL REFLUX DISEASE WITHOUT 10/02/2017 SREE CHUNG MD Ot Z79.899 OTHER DOCTOR OSTEOPATHIC (CURRENT) DRUG THERAPY 10/02/2017 SREE CHUNG MD Ot Z82.49 FAMILY HX OF [place] HEART DIS AND OTH DI 10/10/2017 SREE CHUNG MD Ot E78.2 MIXED HYPERLIPIDEMIA 10/10/2017 SREE CHUNG MD Ot I08.1 RHEUMATIC DISORDERS OF BOTH [place] AND T 10/10/2017 SREE CHUNG MD Ot I47.2 VENTRICULAR TACHYCARDIA 10/10/2017 SREE CHUNG MD Ot I71.4 ABDOMINAL AORTIC ANEURYSM, WITHOUT RUPTU 10/10/2017 SREE CHUNG MD Ot K21.9 GASTRO-ESOPHAGEAL REFLUX DISEASE WITHOUT 10/10/2017 SREE CHUNG MD Ot Z82.3 FAMILY HISTORY OF STROKE 10/16/2017 SREE CHUNG MD Ot E78.2 MIXED HYPERLIPIDEMIA 10/16/2017 SREE CHUNG MD Ot I47.2 VENTRICULAR TACHYCARDIA 10/16/2017 SREE CHUNG MD Ot I71.4 ABDOMINAL AORTIC ANEURYSM, WITHOUT RUPTU 10/16/2017 SREE CHUNG MD Ot K21.9 GASTRO-ESOPHAGEAL REFLUX DISEASE WITHOUT 10/16/2017 SREE CHUNG MD Ot Z82.3 FAMILY HISTORY OF STROKE Procedures [...] plasma albumin measurement (mass/volume) 4.2 g/dL 3.2-4.5 Automated blood complete blood count (hemogram) panel - 09/28/17 07:17 Blood leukocytes automated count (number/volume) 6.1 10*3/uL 4.3-11.0 Blood erythrocytes automated count (number/volume) 3.86 10*6/uL 4.35-5.85 Venous blood hemoglobin measurement (mass/volume) 12.4 g/dL 13.3-17.7 Blood hematocrit (volume fraction) 37 % 40-54 Automated erythrocyte mean corpuscular volume 97 [foz_us] 80-99 Automated erythrocyte mean corpuscular hemoglobin (mass per erythrocyte) 32 pg 25-34 Automated erythrocyte mean corpuscular hemoglobin concentration measurement ( mass/volume) 33 g/dL 32-36 Automated erythrocyte distribution width ratio 15.1 % 10.0-14.5 Automated blood platelet count (count/volume) 204 10*3/uL 130-400 Automated blood platelet mean volume measurement 10.3 [foz_us] 7.4-10.4 PT panel in platelet poor plasma by coagulation assay - 09/28/17 07:17 Prothrombin time (PT) in platelet poor plasma by coagulation assay 13.7 s 12.2-14.7 INR in platelet poor plasma or blood by coagulation assay 1.1 0.8-1.4 Activated partial thromboplastin time (aPTT) in platelet poor plasma bycoagulation assay - 09/28/17 07:17 Activated partial thromboplastin time (aPTT) in platelet poor plasma bycoagulation assay 31 s 24-35 Complete urinalysis with reflex to culture - 09/28/17 07:17 Urine color determination BROWN NRG Urine clarity determination CLEAR NRG Urine pH measurement by test strip 5 5-9 Specific gravity of urine by test strip 1.025 1.016- 1.022 Urine protein assay by test strip, semi-quantitative 1+ NEGATIVE Urine glucose detection by automated test strip NEGATIVE NEGATIVE Erythrocytes detection in urine sediment by light microscopy 3+ NEGATIVE Urine ketones detection by automated test strip 1+ NEGATIVE Urine nitrite detection by test strip NEGATIVE NEGATIVE Urine total bilirubin detection by test strip 1+ NEGATIVE Urine urobilinogen measurement by automated test strip (mass/volume) 4 mg/dL NORMAL Urine leukocyte esterase detection by dipstick 1+ NEGATIVE Automated urine sediment erythrocyte count by microscopy (number/high power field) [HPF] NRG Automated urine sediment leukocyte count by microscopy (number/high power field ) [HPF] NRG Bacteria detection in urine sediment by light microscopy TRACE NRG Crystals detection in urine sediment by light microscopy NONE NRG Casts detection in urine sediment by light microscopy PRESENT NRG Mucus detection in urine sediment by light microscopy SMALL NRG Complete urinalysis with reflex to culture YES NRG Hyaline casts detection in urine sediment by light microscopy 0-2 NRG Comprehensive metabolic panel - 09/28/17 07:17 Serum or plasma sodium measurement (moles/volume) 144 mmol/L 135-145 Serum or plasma potassium measurement (moles/volume) 4.2 mmol/L 3.6-5.0 Serum or plasma chloride measurement (moles/volume) 111 mmol/L 98-107 Carbon dioxide 23 mmol/L 21-32 Serum or plasma anion gap determination (moles/volume) 10 mmol/L 5-14 Serum or plasma urea nitrogen measurement (mass/volume) 18 mg/dL 7-18 Serum or plasma creatinine measurement (mass/volume) 1.37 mg/dL 0.60-1.30 Serum or plasma urea nitrogen/creatinine mass ratio 13 NRG Serum or plasma creatinine measurement with calculation of estimated glomerular filtration rate 50 NRG Serum or plasma glucose measurement (mass/volume) 111 mg/dL 70-105 Serum or plasma calcium measurement (mass/volume) 9.6 mg/dL 8.5-10.1 Serum or plasma total bilirubin measurement (mass/volume) 0.3 mg/dL 0.1-1.0 Serum or plasma alkaline phosphatase measurement (enzymatic activity/volume) 52 U/L 40-136 Serum or plasma aspartate aminotransferase measurement (enzymatic activity/ volume) 14 U/L 5-34 Serum or plasma alanine aminotransferase measurement (enzymatic activity/volume ) 14 U/L 0-55 Serum or plasma protein measurement (mass/volume) 6.6 g/dL 6.4-8.2 Serum or plasma albumin measurement (mass/volume) 4.0 g/dL 3.2-4.5 Bacterial urine culture - 09/28/17 07:17 Bacterial urine culture NG NRG Methicillin resistant Staphylococcus aureus (MRSA) screening culture - 07:17 Methicillin resistant Staphylococcus aureus (MRSA) screening culture NEG NRG Encounters ACCT No. Visit Date/Time Discharge Status Pt. Type Provider Facility Loc./Unit Complaint [id number] 09/28/2017 07:03:00 09/28/2017 13:15:00 DIS Outpatient SREE CHUNG MD [facility] CATH ABNORMAL STRESS TEST,HTN , CAD,AAA [id number] 09/26/2017 07:29:00 09/26/2017 23:59:59 CLS Outpatient SREE CHUNG MD [facility] CARD AAA,GERD,V-TACH [id number] 09/18/2017 09:24:00 09/18/2017 23:59:59 CLS Outpatient SREE CHUNG MD [facility] CARD AAA,GERD,V-TACH [id number] 09/11/2017 15:00:00 09/11/2017 15:42:00 DIS Outpatient LIZZIE ESPITIA DO [facility] SLEEP HYPERSOMNIA, UNSPECIFIED G47.10 [id number] 09/04/2017 09:58:00 09/04/2017 23:59:59 CLS Outpatient LIZZIE ESPITIA DO [facility] CARD R00.2 PALPITATIONS [id number] 05/26/2016 15:19:00 05/26/2016 17:45:00 DIS Emergency FLORIN SANTOS MD [facility] ER ABD TIGHTNESS/PAIN [id number] 04/21/2013 10:22:00 04/21/2013 23:59:59 CLS Outpatient CHRISTIE BHATTI MD [facility] PREOP RIGHT SUBMANDIBULAR STONE [id number] 03/31/2013 07:45:00 03/31/2013 23:59:59 CLS Outpatient CHRISTIE BHATTI MD [facility] RAD RT SUBMANDILAR GLAND MASS [id number] 09/04/2018 09:30:00 PEN Preadmit JJ VOSS MD [facility] ENDO +BLOOD IN STOOLS/ANEMIA [id number] 08/04/2011 09:08:00 Document Registration [id number] 08/02/2011 08:03:00 Document Registration
[2018-08-28] MEDS ORDERED: NS IV 500 ML 500 ML IV PRN (12:21)
[2018-08-28] MEDS ORDERED: NS IV 500 ML 500 ML ONE (12:22)
[2018-08-28] MEDS ORDERED: HURRICAINE EXT TUBE (BENZOCAINE) XX PRN (12:30)
[2018-08-28] MEDS ORDERED: fentaNYL INJECTION 100 MCG/2 ML AMP IVP ONE (12:30)
[2018-08-28] MEDS ORDERED: MIDAZOLAM 2 MG/2 ML (VERSED) VIAL IVP ONE (12:30)
[2018-08-28] MEDS ORDERED: LIDOCAINE JELLY 2% 6 ML SYRINGE MM PRN (12:30)
--- NOTE | 2018-08-28 12:58 | Conscious Sedation/ASA ---
Conscious Sedation Pre-Proced Time 12:50 ASA Score 2 For ASA 3 and 4: Consider anesthesia and medical clearance. Also, for patients with a history of failed moderate sedation consider anesthesia. Airway Lungs Heart ASA score ASA 1: a normal healthy patient ASA 2: a patient with a mild systemic disease (mid diabetes, controlled hypertension, obesity ASA 3: a patient with a severe systemic disease that limits activity (angina , COPD, prior Myocardial infarction) ASA 4: a patient with an incapacitating disease that is a constant threat to life (CHF, renal failure) ASA 5: a moribund patient not expected to survive 24 hrs. (ruptured aneurysm) ASA 6: a declared brain- patient whose organs are being harvested. For emergent operations, add the letter E after the classification Mallampati Classification Grade 2 Sedation Plan Analgesia, Amnesia, Plan communicated to team members, Discussed options with patient/fam, Discussed risks with patient/fam The patient is an appropriate candidate to undergo the planned procedure, sedation, and anesthesia. The patient immediately re-assessed prior to indication. JJ VOSS MD August 28, 2018 12:58
--- NOTE | 2018-08-28 12:59 | Progress Note-Pre Operative ---
Pre-Operative Progress Note H&P Reviewed The H&P was reviewed, patient examined and no changes noted. Date Seen by Provider: August 28, 2018 Time Seen by Provider: 12:50 Date H&P Reviewed: August 28, 2018 Time H&P Reviewed: 12:50 Pre-Operative Diagnosis: anemia, GERD JJ VOSS MD August 28, 2018 12:59
[2018-08-28] MEDS ORDERED: ACETAMINOPHEN 325 MG TABLET PO PRN (13:00)
[2018-08-28] MEDS ORDERED: HYDROcodone/APAP 5 MG/325 MG (LORTAB) TAB PO PRN (13:00)
[2018-08-28] MEDS ORDERED: ONDANSETRON 4 MG/2 ML (SDV) Z0FRAN IV PRN (13:00)
[2018-08-28] MEDS ORDERED: morphine INJ 10 MG/ML 1ML (SYR OR VIAL) IV PRN (13:00)
--- NOTE | 2018-08-28 13:01 | Discharge Inst-Surgical ---
D/C Lap Instructions-SHANIKA Follow Up Activity as tolerated High Fiber Diet 25g or more per day Avoid Alcohol, Caffeine, Spicy [place] and Acid foods. Drink 64 fluid oz or more of fluids per day. Symptoms to Report: Fever over 101 degree F, Nausea/Vomiting If any problems/questions: Contact your physician or go to Emergency Room JJ VOSS MD August 28, 2018 13:01
[2018-08-28 13:13] VITALS: BP 178/109
[2018-08-28] MEDS ORDERED: PROPOFOL INJECTION 50 ML IV ONE (14:06)
[2018-08-28] MEDS ORDERED: MIDAZOLAM 2 MG/2 ML (VERSED) VIAL ONE (14:07)
[2018-08-28] MEDS ORDERED: PHENYLEPHRINE 100 MCG/ML 10 ML (ANESTHESIA) SYR ONE (14:09)
[2018-08-28] MEDS ORDERED: HURRICAINE EXT TUBE (BENZOCAINE) ONE (14:17)
[2018-08-28] MEDS ORDERED: LIDOCAINE JELLY 2% 6 ML SYRINGE ONE (14:17)
[2018-08-28 15:20] VITALS: BP 137/77
--- NOTE | 2018-08-28 15:24 | Progress Note-Post Operative ---
Post-Operative Progess Note Surgeon (s)/Furniture Technician (s) Surgeon JJ VOSS MD Furniture Technician: none Pre-Operative Diagnosis anemia, GERD Post-Operative Diagnosis reflux esophagitis(stage 2), small-moderate HH(2cm), mild gastritis. chronic stage 1 ext and int hemorrhoids, small sigmoid polyp(2mm), mod-severe sigmoid and descending colon diverticulosis. Procedure & Operative Findings Date of Procedure 08/28/18 Procedure Performed/Findings EGD with bx. Colonoscopy with bx. Anesthesia Type MAC Estimated Blood Loss Estimated blood loss (mL): minimal Specimens/Packing Specimens Removed ge jxn, antrum, sigmoid colon polyp JJ VOSS MD August 28, 2018 15:24
[2018-08-28 15:50] VITALS: BP 132/75
[2018-08-28 16:00] VITALS: BP 132/75
--- NOTE | 2018-08-29 01:08 | OPERATIVE REPORT ---
DATE OF SERVICE: 08/28/2018 ATTENDING PRIMARY CARE PHYSICIAN: Dr. Ley. PREOPERATIVE DIAGNOSES: Anemia, gastroesophageal reflux disease, history of colon polyps. POSTOPERATIVE DIAGNOSES: Reflux esophagitis, stage II, moderate size hiatal hernia approximately 2.5 cm in size, mild gastritis, chronic stage I external and internal hemorrhoids, [id number] sigmoid and descending colonic diverticulosis with no signs of diverticulitis and no active bleeding, small sigmoid colonic polyp. PROCEDURE: EGD with biopsy, colonoscopy with biopsy. SURGEON: Jj Voss MD. ANESTHESIA: Monitored anesthesia care. ESTIMATED BLOOD LOSS: Minimal. FINDINGS: Reflux esophagitis, stage II, moderate size hiatal hernia approximately 2.5 cm in size, mild gastritis, chronic stage I external and internal hemorrhoids, [id number] sigmoid and descending colonic diverticulosis with no signs of diverticulitis and no active bleeding, small sigmoid colonic polyp. DISPOSITION: The patient tolerated the procedure well. INDICATIONS: The patient is a 78-year-old male, who was referred over to us for an EGD and colonoscopy. He underwent a recent Hemoccult stool test, which was positive. His last colonoscopy in 2011 and he does report polyps, which were biopsied and found to be benign as well as diverticulosis. He does report that he does have some constipation and does take stool softeners. He was also referred over to us for anemia and a drop in hemoglobin was identified from 15 to 11. He does have a history of reflux and currently takes Protonix. DESCRIPTION OF PROCEDURE: The patient was brought to the endoscopy suite, laid in the left lateral decubitus position. After adequate IV pain and sedating medications and monitored anesthesia care, the mouthpiece was applied. Endoscope was placed in the mouth visualizing the pharynx and hypopharyngeal region. Vocal cords, epiglottis and vallecula identified and appeared to be normal. The endoscope was then gently intubated. The esophageal opening and esophagus was insufflated. The endoscope was then advanced through the first, second and third portions of esophagus. At level of the GE junction, reflux esophagitis stage II identified. There were no ulcers or strictures identified in this region. A biopsy was taken with forceps with visualization of good hemostasis. The endoscope was then advanced in the stomach and the endoscope retroflexed visualizing a small to moderate size hiatal hernia approximately 2.5 cm in size. There was a mild gastritis. No formal ulcerations, polyps or neoplasm as well as no active bleeding. A biopsy was taken of the antrum to rule out H. pylori with visualization of good hemostasis. The endoscope was then advanced to the pylorus and the first and second portion of the duodenum, which appeared normal. The endoscope was then slowly withdrawn while taking a second look and suctioning of residual air with no additional findings. The patient tolerated this portion of procedure well. We will recommend continued conservative management with continuation of Protonix as well as the necessary lifestyle and diet accommodation including avoidance of caffeinated beverages, spicy, greasy and acidic foods as well as taking small and more frequent meals and avoidance of eating at night. He also needs to proceed with smoking cessation. Under the same anesthesia, we then proceeded with the colonoscopy portion of the procedure. A digital rectal examination was performed, which revealed mild chronic stage I external and internal hemorrhoids, not actively edematous nor inflamed and no bleeding. Normal sphincter tone was felt and there were no palpable masses. Prostate gland was palpable and appeared normal. The endoscope was then intubated to the anus and rectum gently insufflated. The endoscope was then advanced to the valves of [place] of the rectum at the distal sigmoid colon, a small polyp approximately 2 mm in size was identified. This was biopsied and destroyed using forceps and cautery with visualization of good hemostasis. The endoscope was then advanced to the sigmoid colon and significant diverticulosis identified. There were no of mucosal inflammatory changes to indicate any active diverticulitis as well as no active signs of bleeding. This diverticulosis also did encompass the majority of the descending colon as well. The endoscope was then advanced to the remainder of the transverse, ascending colon and cecum. These segments were normal. There were no other lesions identified as well as no bleeding sources. The endoscope was slowly withdrawn while taking a second look and suctioning of residual air with no additional findings. The patient tolerated the procedure well. We will recommend medical management with a high-fiber diet with at least 30 grams of fiber per day as well as significant amounts of water to promote soft stools on a daily basis. He does not have any family history of colon cancer and we will await the biopsy results; however, this does look benign. If there is any villous component to this polyp, we will recommend a followup colonoscopy in 3 years. Otherwise, he needs to proceed with a high-fiber diet to promote soft stools on a daily basis. Job ID: [id number] DocumentID: [id number] Dictated Date: 08/28/2018 15:05:49 Rn Liaison Date: 08/29/2018 01:08:02 Dictated By: JJ VOSS MD
== END 2018-08-28 16:00 | disposition home or self-care (01) ==
LOC: ENDO 12:10
PROVIDERS: ATTEND Surgery
DX: K21.0 Gastro-esophageal reflux disease with esophagitis (principal); K44.9 Diaphragmatic hernia without obstruction or gangrene; K29.70 Gastritis, unspecified, without bleeding; K63.5 Polyp of colon; K64.0 First degree hemorrhoids; K57.30 Diverticulosis of large intestine without perforation or abscess without bleeding; Z86.010 Personal history of colon polyps; D64.9 Anemia, unspecified; G47.33 Obstructive sleep apnea (adult) (pediatric); H40.9 Unspecified glaucoma; I10 Essential (primary) hypertension; I25.10 Atherosclerotic heart disease of native coronary artery without angina pectoris; Z95.5 Presence of coronary angioplasty implant and graft; F17.210 Nicotine dependence, cigarettes, uncomplicated; Z79.899 Other long term (current) drug therapy; Z80.42 Family history of malignant neoplasm of prostate

== ENCOUNTER 2019-08-27 16:46 | Emergency (ER) | payer OTHER, MEDICARE ==
[~2019-08-27] VITALS: Ht 178 cm; Wt 87.9 kg
[~2019-08-27 16:46] MED LIST changes: -METO-387 PO; +MTP25TSR PO
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
[2019-08-27 17:52] VITALS: BP 144/95
--- OUTSIDE RECORDS SUMMARY | 2019-08-27 18:40 | XMS REPORT | Continuity of Care Document ---
Author Organization Unknown Address Unknown Phone Unavailable Allergies Active Description Code Type Severity Reaction Onset Reported/Identified Relationship to Patient Clinical Status Yes ciprofloxacin [id number] Les g Allergy Unknown "MADE ME FEEL T 08/28/2018 Yes metronidazole [id number] Les g Allergy Unknown "MADE ME FEEL T 08/28/2018 Medications There is no data. 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 08/04/2011 Ot 564.00 UNS PEC CONSTIPATION 08/04/2011 Ot V12.72 PER STEVEN HISTORY OF COLONIC POLYPS 08/04/2011 Ot V67.09 IONA CARLINE FOLLOW- UP, OTHER SURGERY 05/26/2016 Ot V72.84 EXA M PRE- OPERATIVE NOS 05/26/2016 DAVY CHAND, CHRISTIE Eller Ot 527 .5 SIALOLITHIASIS 05/26/2016 CHRISTIE BHATTI MD Ot 527 .5 SIALOLITHIASIS 05/26/2016 DAVY CHAND, CHRISTIE Eller Ot V72.63 PRE-PROCEDURAL LABORATORY EXAMINATION 05/26/2016 DAVY CHAND, CHRISTIE Eller Ot V74 .8 SCREEN-BACTERIAL DIS NEC 05/26/2016 FLORIN SANTOS MD Ot K57.30 DVRTCLOS OF LG INT W/O PERFORATION OR AB 05/26/2016 FLORIN SANTOS MD Ot R10.30 LOWER ABDOMINAL PAIN, UNSPECIFIED 05/26/2016 FLORIN SANTOS MD Ot 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 CLERK (CURRENT) USE OF ASPIRIN 05/26/2016 FLORIN SANTOS MD Ot Z79.899 OTHER [facility] (CURRENT) DRUG THERAPY 05/26/2016 FLORIN SANTOS MD Ot Z95.828 PRESENCE OF OTHER VASCULAR IMPLANTS AND 06/01/2016 Ot V72.84 EXA M PRE- OPERATIVE NOS 06/01/2016 CHRISTIE BHATTI MD Ot 527 .5 SIALOLITHIASIS 06/01/2016 CHRISTIE BHATTI MD Ot 527 .5 SIALOLITHIASIS 06/01/2016 CHRISTIE BHATTI MD Ot V72.63 PRE-PROCEDURAL LABORATORY EXAMINATION 06/01/2016 CHRISTIE BHATTI MD Ot V74 .8 SCREEN-BACTERIAL DIS NEC 09/03/2017 ESPITIALIZZIE SHERWOOD DO Ot R00.2 PALPITATIONS 09/03/2017 LIZZIE ESPITIA DO Ot R00.2 PALPITATIONS 09/03/2017 CHRISTIE BHATTI MD Ot 527 .5 SIALOLITHIASIS 09/03/2017 CHRISTIE BHATTI MD Ot 527 .5 SIALOLITHIASIS 09/03/2017 CHRISTIE BHATTI MD Ot V72.63 PRE-PROCEDURAL LABORATORY EXAMINATION 09/03/2017 CHRISTIE BHATTI MD Ot V74 .8 SCREEN-BACTERIAL DIS NEC 09/03/2017 LIZZIE ESPITIA DO Ot R00.2 PALPITATIONS 09/05/2017 LIZZIE ESPITIA DO Ot R00.2 PALPITATIONS 09/11/2017 LIZZIE ESPITIA DO Ot G47.10 HYPERSOMNIA, UNSPECIFIED 09/13/2017 LIZZIE ESPITIA DO Ot G47.10 HYPERSOMNIA, UNSPECIFIED 09/19/2017 SREE CHUNG MD Ot E78. 2 MIXED HYPERLIPIDEMIA 09/19/2017 SREE CHUNG MD Ot I08. 1 RHEUMATIC DISORDERS OF BOTH MITRAL AND T 09/19/2017 SREE CHUNG MD Ot I47. 2 VENTRICULAR TACHYCARDIA 09/19/2017 SREE CHUNG MD Ot I71. 4 ABDOMINAL AORTIC ANEURYSM, WITHOUT RUPTU 09/19/2017 SREE CHUNG MD Ot K21. 9 GASTRO-ESOPHAGEAL REFLUX DISEASE WITHOUT 09/19/2017 SREE CHUNG MD Ot Z82. 3 FAMILY HISTORY OF STROKE 09/26/2017 LIZZIE ESPITIA DO Ot R00.2 PALPITATIONS 09/27/2017 SREE CHUNG MD Ot E78. 2 MIXED HYPERLIPIDEMIA 09/27/2017 SREE CHUNG MD Ot I47. 2 VENTRICULAR TACHYCARDIA 09/27/2017 SREE CHUNG MD Ot I71. 4 ABDOMINAL AORTIC ANEURYSM, WITHOUT RUPTU 09/27/2017 SREE CHUNG MD Ot K21. 9 GASTRO-ESOPHAGEAL REFLUX DISEASE WITHOUT 09/27/2017 SREE CHUNG MD Ot Z82. 3 FAMILY HISTORY OF STROKE 09/28/2017 SREE CHUNG MD Ot E78. 2 MIXED HYPERLIPIDEMIA 09/28/2017 SREE CHUNG MD Ot F17.210 NICOTINE DEPENDENCE, CIGARETTES, UNCOMPL 09/28/2017 SREE CHUNG MD Ot I11. 0 HYPERTENSIVE HEART DISEASE WITH HEART FA 09/28/2017 SREE CHUNG MD Ot I25. 10 ATHSCL HEART DISEASE OF [place] CORONARY 09/28/2017 SREE CHUNG MD Ot I47. 2 VENTRICULAR TACHYCARDIA 09/28/2017 SREE CHUNG MD Ot I50. 9 HEART FAILURE, UNSPECIFIED 09/28/2017 SREE CHUNG MD Ot I71. 4 ABDOMINAL AORTIC ANEURYSM, WITHOUT RUPTU 09/28/2017 SREE CHUNG MD Ot I73. 9 PERIPHERAL VASCULAR DISEASE, UNSPECIFIED 09/28/2017 SREE CHUNG MD Ot K21. 9 GASTRO-ESOPHAGEAL REFLUX DISEASE WITHOUT 09/28/2017 SREE CHUNG MD Ot Z79.899 OTHER TAX RECORD CLERK (CURRENT) DRUG THERAPY 09/28/2017 SREE CHUNG MD Ot Z82. 49 FAMILY HX OF [place] HEART DIS AND OTH DI 10/01/2017 SREE CHUNG MD Ot E78. 5 HYPERLIPIDEMIA, UNSPECIFIED 10/01/2017 SREE CHUNG MD Ot F17.210 NICOTINE DEPENDENCE, CIGARETTES, UNCOMPL 10/01/2017 SREE CHUNG MD Ot I11. 0 HYPERTENSIVE HEART DISEASE WITH HEART FA 10/01/2017 SREE CHUNG MD Ot I25. 10 ATHSCL HEART DISEASE OF [place] CORONARY 10/01/2017 SREE CHUNG MD Ot I47. 1 SUPRAVENTRICULAR TACHYCARDIA 10/01/2017 SREE CHUNG MD Ot I50. 9 HEART FAILURE, UNSPECIFIED 10/01/2017 SREE CHUNG MD Ot I73. 9 PERIPHERAL VASCULAR DISEASE, UNSPECIFIED 10/01/2017 SREE CHUNG MD Ot Z79.899 OTHER [facility] (CURRENT) DRUG THERAPY 10/01/2017 SREE CHUNG MD Ot Z82. 49 FAMILY HX OF [place] HEART DIS AND OTH DI 10/01/2017 SREE CHUNG MD Ot E78. 2 MIXED HYPERLIPIDEMIA 10/01/2017 SREE CHUNG MD Ot F17.210 NICOTINE DEPENDENCE, CIGARETTES, UNCOMPL 10/01/2017 SREE CHUNG MD Ot I11. 0 HYPERTENSIVE HEART DISEASE WITH HEART FA 10/01/2017 SREE CHUNG MD Ot I25. 10 ATHSCL HEART DISEASE OF [place] CORONARY 10/01/2017 SREE CHUNG MD Ot I47. 2 VENTRICULAR TACHYCARDIA 10/01/2017 SREE CHUNG MD Ot I50. 9 HEART FAILURE, UNSPECIFIED 10/01/2017 SREE CHUNG MD Ot I71. 4 ABDOMINAL AORTIC ANEURYSM, WITHOUT RUPTU 10/01/2017 SREE CHUNG MD Ot I73. 9 PERIPHERAL VASCULAR DISEASE, UNSPECIFIED 10/01/2017 SREE CHUNG MD Ot K21. 9 GASTRO-ESOPHAGEAL REFLUX DISEASE WITHOUT 10/01/2017 SREE CHUNG MD Ot Z79.899 OTHER [facility] (CURRENT) DRUG THERAPY 10/01/2017 SREE CHUNG MD Ot Z82. 49 FAMILY HX OF [place] HEART DIS AND OTH DI 10/02/2017 SREE CHUNG MD Ot E78. 2 MIXED HYPERLIPIDEMIA 10/02/2017 SREE CHUNG MD Ot I47. 2 VENTRICULAR TACHYCARDIA 10/02/2017 SREE CHUNG MD Ot I71. 4 ABDOMINAL AORTIC ANEURYSM, WITHOUT RUPTU 10/02/2017 SREE CHUNG MD Ot K21. 9 GASTRO-ESOPHAGEAL REFLUX DISEASE WITHOUT 10/02/2017 SREE CHUNG MD Ot Z82. 3 FAMILY HISTORY OF STROKE 10/02/2017 SREE CHUNG MD Ot E78. 2 MIXED HYPERLIPIDEMIA 10/02/2017 SREE CHUNG MD Ot F17.210 NICOTINE DEPENDENCE, CIGARETTES, UNCOMPL 10/02/2017 SREE CHUNG MD Ot I11. 0 HYPERTENSIVE HEART DISEASE WITH HEART FA 10/02/2017 SREE CHUNG MD Ot I25. 10 ATHSCL HEART DISEASE OF [place] CORONARY 10/02/2017 SREE CHUNG MD Ot I47. 2 VENTRICULAR TACHYCARDIA 10/02/2017 SREE CHUNG MD Ot I50. 9 HEART FAILURE, UNSPECIFIED 10/02/2017 SREE CHUNG MD Ot I71. 4 ABDOMINAL AORTIC ANEURYSM, WITHOUT RUPTU 10/02/2017 SREE CHUNG MD Ot I73. 9 PERIPHERAL VASCULAR DISEASE, UNSPECIFIED 10/02/2017 SREE CHUNG MD, Ot K21. 9 GASTRO-ESOPHAGEAL REFLUX DISEASE WITHOUT 10/02/2017 SREE CHUNG MD Ot Z79.899 OTHER TAX RECORD CLERK (CURRENT) DRUG THERAPY 10/02/2017 SREE CHUNG MD Ot Z82. 49 FAMILY HX OF [place] HEART DIS AND OTH DI 10/10/2017 SREE CHUNG MD Ot E78. 2 MIXED HYPERLIPIDEMIA 10/10/2017 SREE CHUNG MD Ot I08. 1 RHEUMATIC DISORDERS OF BOTH MITRAL AND T 10/10/2017 SREE CHUNG MD Ot I47. 2 VENTRICULAR TACHYCARDIA 10/10/2017 SREE CHUNG MD Ot I71. 4 ABDOMINAL AORTIC ANEURYSM, WITHOUT RUPTU 10/10/2017 SREE CHUNG MD Ot K21. 9 GASTRO-ESOPHAGEAL REFLUX DISEASE WITHOUT 10/10/2017 SREE CHUNG MD Ot Z82. 3 FAMILY HISTORY OF STROKE 10/16/2017 SREE CHUNG MD Ot E78. 2 MIXED HYPERLIPIDEMIA 10/16/2017 SREE CHUNG MD Ot I47. 2 VENTRICULAR TACHYCARDIA 10/16/2017 SREE CHUNG MD Ot I71. 4 ABDOMINAL AORTIC ANEURYSM, WITHOUT RUPTU 10/16/2017 SREE CHUNG MD Ot K21. 9 GASTRO-ESOPHAGEAL REFLUX DISEASE WITHOUT 10/16/2017 SREE CHUNG MD Ot Z82. 3 FAMILY HISTORY OF STROKE 08/26/2018 JJ VOSS MD Ot Z01.81 8 ENCOUNTER FOR OTHER PREPROCEDURAL EXAMIN 08/27/2018 JJ VOSS MD Ot Z01.81 8 ENCOUNTER FOR OTHER PREPROCEDURAL EXAMIN 08/28/2018 CHRISTIE BHATTI MD Ot 527 .5 SIALOLITHIASIS 08/28/2018 CHRISTIE BHATTI MD Ot 527 .5 SIALOLITHIASIS 08/28/2018 CHRISTIE BHATTI MD Ot V72.63 PRE-PROCEDURAL LABORATORY EXAMINATION 08/28/2018 CHRISTIE BHATTI MD Ot V74 .8 SCREEN-BACTERIAL DIS NEC 08/28/2018 LIZZIE ESPITIA DO Ot R00.2 PALPITATIONS 08/28/2018 SREE CHUNG MD, Ot E78. 2 MIXED HYPERLIPIDEMIA 08/28/2018 SREE CHUNG MD Ot I08. 1 RHEUMATIC DISORDERS OF BOTH MITRAL AND T 08/28/2018 SREE CHUNG MD Ot I47. 2 VENTRICULAR TACHYCARDIA 08/28/2018 SREE CHUNG MD, Ot I71. 4 ABDOMINAL AORTIC ANEURYSM, WITHOUT RUPTU 08/28/2018 SREE CHUNG MD, Ot K21. 9 GASTRO-ESOPHAGEAL REFLUX DISEASE WITHOUT 08/28/2018 SREE CHUNG MD, Ot Z82. 3 FAMILY HISTORY OF STROKE 08/28/2018 SREE CHUNG MD, Ot E78. 2 MIXED HYPERLIPIDEMIA 08/28/2018 SREE CHUNG MD, Ot I47. 2 VENTRICULAR TACHYCARDIA 08/28/2018 SREE CHUNG MD, Ot I71. 4 ABDOMINAL AORTIC ANEURYSM, WITHOUT RUPTU 08/28/2018 SREE CHUNG MD, Ot K21. 9 GASTRO-ESOPHAGEAL REFLUX DISEASE WITHOUT 08/28/2018 SREE CHUNG MD, Ot Z82. 3 FAMILY HISTORY OF STROKE 08/28/2018 JJ VOSS MD Ot D64.9 ANEMIA, UNSPECIFIED 08/28/2018 JJ VOSS MD, Ot F17.21 0 NICOTINE DEPENDENCE, CIGARETTES, UNCOMPL 08/28/2018 JJ VOSS MD, Ot G47.33 OBSTRUCTIVE SLEEP APNEA (ADULT) (PEDIATR 08/28/2018 JJ VOSS MD, Ot H40.9 UNSPECIFIED GLAUCOMA 08/28/2018 JJ VOSS MD Ot I10 ESSENTIAL (PRIMARY) HYPERTENSION 08/28/2018 JJ VOSS MD, Ot I25.10 ATHSCL HEART DISEASE OF [place] CORONARY 08/28/2018 JJ VOSS MD Ot K21.0 GASTRO-ESOPHAGEAL REFLUX DISEASE WITH ES 08/28/2018 JJ VOSS MD, Ot K29.70 GASTRITIS, UNSPECIFIED, WITHOUT BLEEDING 08/28/2018 JJ VOSS MD, Ot K44.9 DIAPHRAGMATIC HERNIA WITHOUT OBSTRUCTION 08/28/2018 JJ VOSS MD, Ot K57.30 DVRTCLOS OF LG INT W/O PERFORATION OR AB 08/28/2018 JJ VOSS MD, Ot K63.5 POLYP OF COLON 08/28/2018 JJ VOSS MD, Ot K64.0 FIRST DEGREE HEMORRHOIDS 08/28/2018 JJ VOSS MD, Ot Z79.89 9 OTHER [facility] (CURRENT) DRUG THERAPY 08/28/2018 JJ VOSS MD, Ot Z80.42 FAMILY HISTORY OF MALIGNANT NEOPLASM OF 08/28/2018 JJ VOSS MD, Ot Z86.01 0 PERSONAL HISTORY OF COLONIC POLYPS 08/28/2018 JJ VOSS MD, Ot Z95.5 PRESENCE OF CORONARY ANGIOPLASTY IMPLANT 08/30/2018 JJ VOSS MD, Ot D64.9 ANEMIA, UNSPECIFIED 08/30/2018 JJ VOSS MD, Ot F17.21 0 NICOTINE DEPENDENCE, CIGARETTES, UNCOMPL 08/30/2018 JJ VOSS MD, Ot G47.33 OBSTRUCTIVE SLEEP APNEA (ADULT) (PEDIATR 08/30/2018 JJ VOSS MD, Ot H40.9 UNSPECIFIED GLAUCOMA 08/30/2018 JJ VOSS MD, Ot I10 ESSENTIAL (PRIMARY) HYPERTENSION 08/30/2018 JJ VOSS MD, Ot I25.10 ATHSCL HEART DISEASE OF [place] CORONARY 08/30/2018 JJ VOSS MD, Ot K21.0 GASTRO-ESOPHAGEAL REFLUX DISEASE WITH ES 08/30/2018 JJ VOSS MD, Ot K29.70 GASTRITIS, UNSPECIFIED, WITHOUT BLEEDING 08/30/2018 JJ VOSS MD, Ot K44.9 DIAPHRAGMATIC HERNIA WITHOUT OBSTRUCTION 08/30/2018 JJ VOSS MD, Ot K57.30 DVRTCLOS OF LG INT W/O PERFORATION OR AB 08/30/2018 JJ VOSS MD, Ot K63.5 POLYP OF COLON 08/30/2018 JJ VOSS MD, Ot K64.0 FIRST DEGREE HEMORRHOIDS 08/30/2018 JJ VOSS MD, Ot Z79.89 9 OTHER [facility] (CURRENT) DRUG THERAPY 08/30/2018 JJ VOSS MD, Ot Z80.42 FAMILY HISTORY OF MALIGNANT NEOPLASM OF 08/30/2018 JJ VOSS MD, Ot Z86.01 0 PERSONAL HISTORY OF COLONIC POLYPS 08/30/2018 JJ VOSS MD, Ot Z95.5 PRESENCE OF CORONARY ANGIOPLASTY IMPLANT 08/30/2018 JJ VOSS MD, Ot D64.9 ANEMIA, UNSPECIFIED 08/30/2018 JJ VOSS MD, Ot F17.21 0 NICOTINE DEPENDENCE, CIGARETTES, UNCOMPL 08/30/2018 JJ VOSS MD, Ot G47.33 OBSTRUCTIVE SLEEP APNEA (ADULT) (PEDIATR 08/30/2018 JJ VOSS MD, Ot H40.9 UNSPECIFIED GLAUCOMA 08/30/2018 JJ VOSS MD, Ot I10 ESSENTIAL (PRIMARY) HYPERTENSION 08/30/2018 JJ VOSS MD, Ot I25.10 ATHSCL HEART DISEASE OF [place] CORONARY 08/30/2018 JJ VOSS MD, Ot K21.0 GASTRO-ESOPHAGEAL REFLUX DISEASE WITH ES 08/30/2018 JJ VOSS MD, Ot K29.70 GASTRITIS, UNSPECIFIED, WITHOUT BLEEDING 08/30/2018 JJ VOSS MD, Ot K44.9 DIAPHRAGMATIC HERNIA WITHOUT OBSTRUCTION 08/30/2018 JJ VOSS MD, Ot K57.30 DVRTCLOS OF LG INT W/O PERFORATION OR AB 08/30/2018 JJ VOSS MD, Ot K63.5 POLYP OF COLON 08/30/2018 JJ VOSS MD, Ot K64.0 FIRST DEGREE HEMORRHOIDS 08/30/2018 JJ VOSS MD, Ot Z79.89 9 OTHER TAX RECORD CLERK (CURRENT) DRUG THERAPY 08/30/2018 JJ VOSS MD, Ot Z80.42 FAMILY HISTORY OF MALIGNANT NEOPLASM OF 08/30/2018 JJ VOSS MD, Ot Z86.01 0 PERSONAL HISTORY OF COLONIC POLYPS 08/30/2018 JJ VOSS MD, Ot Z95.5 PRESENCE OF CORONARY ANGIOPLASTY IMPLANT Procedures There is no data. Results Test Result Range Complete blood count (CBC) with automate d white blood cell (WBC) differential - 05/26/16 15:00 Blood leukocytes automated count (number/volume) 11.8 10*3/uL 4.3-11.0 Blood erythrocytes automated count (number/volume) 4.39 10*6/uL 4.35-5.85 Venous blood hemoglobin measurement (mass/volume) 14.0 g/dL 13.3-17.7 Blood hematocrit (volume fraction) 42 % 40-54 Automated erythrocyte mean corpuscular volume 95 [ foz_us] 80-99 Automated erythrocyte mean corpuscular h emoglobin (mass per erythrocyte) 32 pg 25-34 Automated erythrocyte mean corpuscular h emoglobin concentration measurement (mass/volume) 34 g/dL 32-36 Automated erythrocyte distribution width ratio 14. 3 % 10.0- 14.5 Automated blood platelet count (count/volume) 235 10*3/uL [...] 10*3 1.0-4.0 Blood monocytes automated count (number/volume) 0. 7 10*3 0.0-1.0 Automated eosinophil count 0.1 10*3/uL 0 .0-0.3 Automated blood basophil count (count/volume) 0.0 10*3/uL 0.0-0.1 Comprehensive metabolic panel - 05/26/16 15:00 Serum or plasma sodium measurement (moles/volume) 140 mmol/L 135-145 Serum or plasma potassium measurement (moles/volume) 3.9 mmol/L 3.6-5.0 Serum or plasma chloride measurement (moles/volume) 107 mmol/L 98-107 Carbon dioxide 24 mmol/L 21-32 Serum or plasma anion gap determination (moles/volume) 9 mmol/L 5-14 Serum or plasma urea nitrogen measurement (mass/volume ) 19 mg/dL 7-18 Serum or plasma creatinine measurement (mass/volume) 1.18 mg/dL 0.60-1.30 Serum or plasma urea nitrogen/creatinine mass ratio 16 NRG Serum or plasma creatinine measurement w ith calculation of estimated glomerular filtration rate 60 NRG Serum or plasma glucose measurement (mass/volume) 99 mg/dL 70-105 Serum or plasma calcium measurement (mass/volume) 9.8 mg/dL 8.5-10.1 Serum or plasma total bilirubin measurement (mass/volu me) 0.4 mg/dL 0.1-1.0 Serum or plasma alkaline phosphatase rikki surement (enzymatic activity/volume) 55 U/L 40-136 Serum or plasma aspartate aminotransfera se measurement (enzymatic activity/volume) 13 U/L 5-34 Serum or plasma alanine aminotransferase measurement (enzymatic activity/volume) 12 U/L 0-55 Serum or plasma protein measurement (mass/volume) 7.1 g/dL 6.4-8.2 Serum or plasma albumin measurement (mass/volume) 4.2 g/dL 3.2-4.5 Automated blood complete blood count (he mogram) panel - 09/28/17 07:17 Blood leukocytes automated count (number/volume) 6.1 10*3/uL 4.3-11.0 Blood erythrocytes automated count (number/volume) 3.86 10*6/uL 4.35-5.85 Venous blood hemoglobin measurement (mass/volume) 12.4 g/dL 13.3-17.7 Blood hematocrit (volume fraction) 37 % 40-54 Automated erythrocyte mean corpuscular volume 97 [ foz_us] 80-99 Automated erythrocyte mean corpuscular h emoglobin (mass per erythrocyte) 32 pg 25-34 Automated erythrocyte mean corpuscular h emoglobin concentration measurement (mass/volume) 33 g/dL 32-36 Automated erythrocyte distribution width ratio 15. 1 % 10.0- 14.5 Automated blood platelet count (count/volume) 204 10*3/uL 130-400 Automated blood platelet mean volume measurement 10.3 [foz_us] 7.4-10.4 PT panel in platelet poor plasma by coag ulation assay - 09/28/17 07:17 Prothrombin time (PT) in platelet poor plasma by coagu lation assay 13.7 s 12.2-14.7 INR in platelet poor plasma or blood by coagulation as say 1.1 0.8-1.4 Activated partial thromboplastin time (a PTT) in platelet poor plasma bycoagulation assay - 09/28/17 07:17 Activated partial thromboplastin time (a PTT) in platelet poor plasma bycoagulation assay 31 s 24-35 Complete urinalysis with reflex to cultu re - 09/28/17 07:17 Urine color determination BROWN NRG Urine clarity determination CLEAR NR G Urine pH measurement by test strip 5 5-9 Specific gravity of urine by test strip 1.025 1.016-1.022 Urine protein assay by test strip, semi-quantitative 1+ NEGATIVE Urine glucose detection by automated test strip NE GATIVE NEGATIVE Erythrocytes detection in urine sediment by light micr oscopy 3+ NEGATIVE Urine ketones detection by automated test strip 1+ NEGATIVE Urine nitrite detection by test strip NEGATIVE NEGATIVE Urine total bilirubin detection by test strip 1+ NEGATIVE Urine urobilinogen measurement by automated test strip (mass/volume) 4 mg/dL NORMAL Urine leukocyte esterase detection by dipstick 1+ NEGATIVE Automated urine sediment erythrocyte cou nt by microscopy (number/high power field) [HPF] NRG Automated urine sediment leukocyte count by microscopy (number/high power field) [HPF] NRG Bacteria detection in urine sediment by light microsco py TRACE NRG Crystals detection in urine sediment by light microsco py NONE NRG Casts detection in urine sediment by light microscopy PRESENT NRG Mucus detection in urine sediment by light microscopy SMALL NRG Complete urinalysis with reflex to culture YES NRG Hyaline casts detection in urine sediment by light leonid roscopy 0-2 NRG Comprehensive metabolic panel - 09/28/17 07:17 Serum or plasma sodium measurement (moles/volume) 144 mmol/L 135-145 Serum or plasma potassium measurement (moles/volume) 4.2 mmol/L 3.6-5.0 Serum or plasma chloride measurement (moles/volume) 111 mmol/L 98-107 Carbon dioxide 23 mmol/L 21-32 Serum or plasma anion gap determination (moles/volume) 10 mmol/L 5-14 Serum or plasma urea nitrogen measurement (mass/volume ) 18 mg/dL 7-18 Serum or plasma creatinine measurement (mass/volume) 1.37 mg/dL 0.60-1.30 Serum or plasma urea nitrogen/creatinine mass ratio 13 NRG Serum or plasma creatinine measurement w ith calculation of estimated glomerular filtration rate 50 NRG Serum or plasma glucose measurement (mass/volume) 111 mg/dL 70-105 Serum or plasma calcium measurement (mass/volume) 9.6 mg/dL 8.5-10.1 Serum or plasma total bilirubin measurement (mass/volu me) 0.3 mg/dL 0.1-1.0 Serum or plasma alkaline phosphatase rikki surement (enzymatic activity/volume) 52 U/L 40-136 Serum or plasma aspartate aminotransfera se measurement (enzymatic activity/volume) 14 U/L 5-34 Serum or plasma alanine aminotransferase measurement (enzymatic activity/volume) 14 U/L 0-55 Serum or plasma protein measurement (mass/volume) 6.6 g/dL 6.4-8.2 Serum or plasma albumin measurement (mass/volume) 4.0 g/dL 3.2-4.5 Bacterial urine culture - 09/28/17 07:17 Bacterial urine culture NG NRG Methicillin resistant Staphylococcus aur eus (MRSA) screening culture - 09/28/17 07:17 Methicillin resistant Staphylococcus aureus (MRSA) scr eening culture NEG NRG Encounters ACCT No. Visit Date/Time Discharge Status Pt. Type Provider Facility Loc./Unit Complaint [id number] 08/27/2019 16:48:00 17:52:00 DIS Emergency DANIELLE CHAND, FLORIN Lala [facility] ER BACK PAIN [id number] 08/28/2018 12:10:00 16:00:00 DIS Outpatient JJ VOSS MD [facility] ENDO +BLOOD IN STOOLS/ANEMIA [id number] 08/26/2018 09:12:00 16:07:00 DIS Outpatient JJ VOSS MD [facility] PREOP COLONOSCOPY/EGD [id number] 09/28/2017 07:03:00 018 13:15:00 DIS Outpatient SREE CHUNG MD [facility] CATH ABNORMAL STRESS TEST,HT N, CAD,AAA [id number] 09/26/2017 07:29:00 018 23:59:59 CLS Outpatient SREE CHUNG MD [facility] CARD AAA,GERD,V-TACH [id number] 09/18/2017 09:24:00 018 23:59:59 CLS Outpatient SREE CHUNG MD [facility] CARD AAA,GERD,V-TACH [id number] 09/11/2017 15:00:00 018 15:42:00 DIS Outpatient LIZZIE ESPITIA DO [facility] SLEEP HYPERSOMNIA,UNS PECIFIED G47.10 [id number] 09/04/2017 09:58:00 018 23:59:59 CLS Outpatient LIZZIE ESPITIA DO [facility] CARD R00.2 PALPITATI ONS [id number] 05/26/2016 15:19:00 017 17:45:00 DIS Emergency FLORIN SANTOS MD [facility] ER ABD TIGHTNESS/P AIN [id number] 04/21/2013 10:22:00 013 23:59:59 CLS Outpatient CHRISTIE BHATTI MD [facility] PREOP RIGHT SUBMANDIBULAR STO NE [id number] 03/31/2013 07:45:00 013 23:59:59 CLS Outpatient CHRISTIE BHATTI MD [facility] RAD RT SUBMANDILAR GLAND [place] [id number] 08/04/2011 09:08:00 Document Registration [id number] 08/02/2011 08:03:00 Document Registration
--- OUTSIDE RECORDS SUMMARY | 2019-08-27 18:40 | XMS REPORT ---
Author Author [facility] Organization [facility] Address [address] [address] Care Team Providers Care Patch Washer Name Role Phone LIZZIE ESPITIA Unavailable CHRISTIE BHATTI MD Unavailable Unavailable DANIELLE CHAND, FLORIN Lala Unavailable Unavailable LIZZIE ESPITIA PCP SHANIKA CHAND, JJ Unavailable Unavailable CHRISTIE BHATTI MD Unavailable Unavailable JULIET CHAND, SREE Beckham Unavailable Unavailable JJ VOSS MD Unavailable Unavailable LIZZIE ESPITIA DO Unavailable Unavailable FLORIN SANTOS MD Unavailable Unavailable Allergies No Information Medications Medication Ingredient Drug Dose Dates Status Sig Sig Care Class(es) (Normalized) (Original) Provid er no Aspirin no 08-27-19 Complete no Aspirin (no information (Aspirin information 19 d information (Aspi rin 325 phone) (2 325 Mg Tab) Mg Tab) 325 sources.) 325 Mg Tab, Mg Tab, 325 325 Mg Oral Mg Oral Daily Discontinued no Aspirin no 162 mg Complete take 162 mg Aspirin (no information (Aspirin Ec information d by mouth (Aspirin Ec phone) (1 source.) 81 Mg) 81 once daily, 81 Mg) 81 Mg Mg Tabec then take 81 Tabec 162 Mg mg by mouth, ORAL Daily then take 81 mg by mouth no Aspirin no 08-27-19 Complete no Aspirin (no information (Aspirin Ec information 19 d information (A spirin Ec phone) (2 81 Mg) 81 81 Mg) 81 Mg sources.) Mg Tabec, Tabec, 162 162 Mg Oral Mg Oral Daily Discontinued atorvastati atorvastati HMG-CoA 40 mg Complete take 1 Atorvastat in (no n 40 mg n Reductase d tablet by Calcium 40 kim ne) oral tablet Inhibitor mouth at Mg Tablet 40 (2 bedtime Mg ORAL sources.) Bedtime clopidogrel clopidogrel P2Y12 75 mg Complete take 1 Clopidogrel (no 75 mg oral Platelet d tablet by Bisulfate phone) tablet (2 Inhibitor mouth once (Plavix) 75 sources.) daily Mg Tablet 75 Mg ORAL Daily no Dorzolamadi no 1 04-21-20 Complete take 1 Dorzol amadid (no information de , 1 Drop information drop(s 13 d drop(s) into e , 1 Drop phone) (3 Opthalmic ) the eye(s) Opthalmic sources.) twice daily Twice A Day Discontinued lisinopril lisinopril Angiotensin 10 mg Complete take 1 Lisinopr il (no 10 mg oral Converting d tablet by 10 Mg Tablet phone ) tablet (3 Enzyme mouth once 10 Mg ORAL sources.) Inhibitor daily Daily loratadine Loratadine no 10 mg Complete take 1 Loratadine ( no 10 mg oral information d tablet by 10 Mg Tablet phon e) tablet (2 mouth once 10 Mg ORAL sources.) daily Daily 24 hr metoprolol beta-Adrene 08-27-19 Complete no Metoprolo l (no metoprolol Translation rgic 19 d information Succinate phone) succinate s: [ 24 HR Alley (Toprol Xl) 25 mg metoprolol 25 Mg extended succinate Tab.er.24h, release 25 MG 25 Mg Oral oral tablet Extended Daily (5 Release Discontinued sources.) Oral Table] 25 mg Completed take 1 Metoprol (no tablet ol phone) by Succinat mouth e 25 Mg at Tab.er.2 bedtim 4h 25 Mg e ORAL Bedtime 25 mg Completed take 1 Metoprol (no tablet ol phone) by Succinat mouth e once (Toprol daily Xl) 25 Mg Tab.er.2 4h 25 Mg ORAL Daily no Mu-Vits-Min no Complete take 1 Mu-Vits-Min (no information Th/Lycopene information d tablet by Th/Lyco pene/ phone) (1 source.) /Lutein mouth once Lutein (Century daily (Century Adults 50+ Adults 50+ Tablet) 1 Tablet) 1 Each Tablet Each Tablet 1 Tab ORAL Daily no Mu-Vits-Min no 08-27-19 Complete no Mu-Vits-Min ( no information Th/Lycopene information 19 d information Th /Lycopene/ phone) (2 /Lutein Lutein sources.) (Century (Century Adults 50+ Adults 50+ Tablet) 1 Tablet) 1 Each Each Tablet, Tablet, 1 1 Tab Oral Tab Oral Daily Discontinued no Multivit-Mi no Complete no Multivit-Min (n o information n/Fa/Lycope information d information /Fa/L ycopen/ phone) (2 n/Lutein Lutein (Men sources.) (Men 50 50 Plus Plus Multivitamin Multivitami Tab) 1 Each n Tab) 1 Tablet 1 Each Tablet Each ORAL Daily no Omeprazole no 20 mg Complete take 1 Omeprazole (no information 20 Mg information d capsule by 20 Mg phone) (1 source.) Capsule.dr mouth once Capsule.dr daily 20 Mg ORAL Daily no Omeprazole no 08-27-19 Complete no Omeprazole (no information 20 Mg information 19 d information 20 Mg phone) (2 Capsule.dr, Capsule.dr, sources.) 20 Mg Oral 20 Mg Oral Daily Discontinued pantoprazol pantoprazol Proton Pump 40 mg Complete take 1 Pantop razole (no e 40 mg e Inhibitor d tablet by Sodium 40 Mg p katherine) delayed mouth once Tablet. 40 release daily Mg ORAL oral tablet Daily (2 sources.) no Simvastatin no 08-27-19 Complete no Simvastatin ( no information (Zocor) 20 information 19 d information (Zo cor) 20 phone) (2 Mg Tab, 20 Mg Tab, 20 sources.) Mg Oral Mg Oral Bedtime Discontinued no Timolol no 1 Complete take 1 Timolol (no information Maleate/Juan information drop(s d drop(s) into M aleate/Lumavitaz phone) (1 source.) zolam Hcl ) the eye(s) olam Hcl (Dorzolamid twice daily (Dorzolamide e-Timolol -Timolol Eye Eye Drops) Drops) 10 Ml 10 Ml Drops Drops 2 Drops OPTHALMIC Twice A Day no Timolol no 08-27-19 Complete no Timolol (no information Maleate/Juan information 19 d information Ma leate/Dorz phone) (2 zolam Hcl olam Hcl sources.) (Dorzolamid (Dorzolamide e-Timolol -Timolol Eye Eye Drops) Drops) 10 Ml 10 Ml Drops, 2 Drops, 2 Drops Drops Opthalmic Opthalmic Twice A Day Discontinued no Travoprost no 1 Complete no Travoprost (no information (Travatan information drop(s d information (Tra vatan Z) phone) (1 source.) Z) 5 Ml ) 5 Ml Drops 1 Drops Drop OPTHALMIC Bedtime no Travoprost no 1 08-27-19 Complete take 1 Travopr ost (no information (Travatan information drop(s 19 d drop(s) in to (Travatan Z) phone) (2 Z) 5 Ml ) the eye(s) 5 Ml Drops, sources.) Drops, 1 at bedtime 1 Drop Drop Opthalmic Opthalmic Bedtime Discontinued no Vitamin B no 150 mg Complete take 1 Vitamin B (no information Complex & information d tablet by Complex & phone) (1 source.) Vit C No.4 mouth once Vit C No.4 (Super B daily, then (Super B Complex) take 1 Complex) 150 150 Mg tablet by Mg Tablet Tablet mouth 150 Mg ORAL Daily no Vitamin B no 08-27-19 Complete no Vitamin B (no information Complex & information 19 d information Comp cecilio & phone) (2 Vit C No.4 Vit C No.4 sources.) (Super B (Super B Complex) Complex) 150 150 Mg Mg Tablet, Tablet, 150 150 Mg Oral Mg Oral Daily Discontinued no Vitamin B no Complete take 1 Vitamin B (no information Complex 1 information d tablet by Complex 1 phone) (2 Each Tablet mouth once Each Tablet sources.) daily 1 Each ORAL Daily Problems Active Problems Problem Normalized Date of Normalized Normalized Provider Fac ility Classification Problem(s) Problem Problem Problem Sta tus Onset/Resoluti Duration on Aortic; Abdominal Chronic Active SREE CHUNG , [facility] Via peripheral; 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, Hospital - artery without [place] aneurysms (12 rupture (74227) sources.) Deficiency and Anemia Episodic Active LIZZIE Gutierrez n Via other anemia OMKAR [address] [place] (1 source.) [facility] (26698) Coronary Atheroscleroti Chronic Active SREE CHUNG , [facility] Via atherosclerosi c heart [facility] s and other disease of Hospital - heart disease [place] (7 sources.) coronary (08037) artery without angina pectoris Diverticulosis Diverticulosis Chronic Active TAKVELVET KIDO , Not Available and of paulo CHAND (41393) diverticulitis intestine (11 sources.) without perforation or abscess without bleeding Translations: [ DIVERTICULOSIS COLON (W/O MENT OF HEMORR] Residual Family history Episodic Active SREE CHUNG , [facility] Via codes; of ischemic [facility] - (11 sources.) and other [place] diseases of ([address]) the circulatory system Translations: [ FAMILY HISTORY OF STROKE] Residual Family history Episodic Active SREE CHUNG , [facility] Via codes; of stroke [facility] unclassified Hospital - (2 sources.) [place] (178[address]) Esophageal Gastro-esophag Chronic Active BASHAR JULIET , [facility] Via disorders (16 eal reflux [facility] sources.) disease Hospital - without [place] esophagitis (76171) Translations: [ GASTRO-ESOPHAG EAL REFLUX DISEASE WITH ES] Congestive Heart failure, Chronic Active BASHAR JULIET , [facility] Via heart failure; unspecified [facility] nonhypertensiv Hospital - e (6 sources.) [place] ([address]8464) Essential Hypertensive Chronic Active LIZZIE Via [place] hypertension disorder [place] [id number] [place] [address] (7 sources.) Translations: [place] [ ESSENTIAL (65983) (PRIMARY) HYPERTENSION] Hypertension Hypertensive Chronic Active BASHAR JULIET , [facility] Via with heart disease [facility] complications with heart Hospital - and secondary failure [place] hypertension (57375) (6 sources.) Other [facility] Episodic Active FLORIN Not Availabl e aftercare (5 (current) use MD DANIELLE (80624) sources.) of aspirin Abdominal pain Lower Episodic Active FLORIN Not Avai lable (9 sources.) abdominal MD [facility]ELLE () pain, unspecified Disorders of Mixed Chronic Active ELENAEKCIA CHUNG , [facility] V ia lipid hyperlipidemia [facility] metabolism (13 Translations: Hospital - sources.) [ [place] HYPERLIPIDEMIA (09774) , UNSPECIFIED] Substance-rela Nicotine Chronic Active SREE CHUNG H Via elizabeth disorders dependence, [facility] (10 sources.) cigarettes, Hospital - uncomplicated [place] () Residual Obstructive Chronic Active JJ VOSS [facility] ia codes; sleep apnea [facility] unclassified (adult) Hospital - (4 sources.) (pediatric) [place] ([address]) Cardiac Palpitations Episodic Active LIZZIE [facility] Via dysrhythmias DO [place] ESPITIA (7 sources.) Hospital - [place] ([address]) Peripheral and Peripheral Chronic Active BASHAR JULIET , [facility] Via visceral vascular [facility] atherosclerosi disease, Hospital - s (6 sources.) unspecified [place] ([address]659) Coronary Presence of no information Active JJ VOSS [facility] Via atherosclerosi coronary MD [facility] alvarado and other angioplasty Hospital - heart disease implant and [place] (6 sources.) graft (82164) Translations: [ ATHSCL HEART DISEASE OF [place] CORONARY ] Other Presence of Chronic Active FLORIN Not Availa ble circulatory other vascular CANTWELL , MD () disease (5 implants and sources.) grafts 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 (3 disorders of [facility] sources.) 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 () Immunizations Screening Episodic Active CHRISTIE BHATTI Not Available and screening examination , () for infectious for other disease (4 specified sources.) bacterial and spirochetal diseases Diseases of Sialolithiasis Episodic Active CHRISTIE BHATTI N ot Available mouth; , () excluding dental (8 sources.) Glaucoma (4 Unspecified Chronic Active JJ VOSS [facility] Via sources.) glaucoma [place] [facility] - [place] () Cardiac Ventricular Chronic Active TORI GUERRA V ia dysrhythmias tachycardia [facility] (13 sources.) Translations: Hospital - [ [place] SUPRAVENTRICUL () AR TACHYCARDIA] Past or Other Problems Problem Normalized Date of Normalized Normalized Provider Fac ility Classification Problem(s) Problem Problem Problem Sta tus Onset/Resoluti Duration on Deficiency and Anemia, Episodic Completed TAKAAREYNALDO KIDMartin [facility] Via other anemia unspecified [facility] (4 sources.) Hospital - [place] () Other Constipation, Episodic Completed JJ VOSS , Not Available gastrointestin unspecified () al disorders (2 sources.) Abdominal Diaphragmatic Episodic Completed JJ VOSS [facility] Via hernia (4 hernia without [facility] sources.) obstruction or Hospital - gangrene [place] () Residual Family history Episodic Completed JJ VOSS [facility] Via codes; of malignant [facility] unclassified neoplasm of Hospital - (4 sources.) prostate [place] () Other Follow-up Episodic Completed JJ NYO , Not Amanda ilable aftercare (2 examination, () sources.) following other surgery Gastritis and Gastritis, Episodic Completed JJ VOSS [facility] Via duodenitis (4 unspecified, [facility] sources.) without Hospital - bleeding [place] () Residual Hypersomnia, no information no information LIZZIE VALLE Via codes; unspecified DO [place] ESPITIA unclassified Hospital - (5 sources.) [place] () Hemorrhoids (8 Internal Episodic Completed NELSONAAREYNALDO NYO , Not Available sources.) hemorrhoids (62475) without mention of complication Translations: [ EXT HEMORRHOID W/O COMPL, FIRST DEGREE HEMORRHOIDS] Other Other long Episodic Completed FLORIN Not Availab le aftercare (15 term (current) MD DANIELLE (35784) sources.) drug therapy Other and Personal Episodic Completed TAKAAKI KIDO , Not Avai lable unspecified history of MD (57834) benign colonic polyps neoplasm (2 sources.) Other and Personal Episodic Completed TAKAAKI KIDO , [facility] Via unspecified history of [facility] benign colonic polyps Hospital - neoplasm (4 [place] sources.) (06557) Other and Polyp of colon Episodic Completed TAKAAREYNALDO KIDO , [facility] Via unspecified [facility] benign [facility] - neoplasm (4 [place] sources.) (18546) Coronary Presence of Episodic Completed TAKAAREYNALDO KIDO , [facility] V ia atherosclerosi coronary [place] s and other angioplasty Hospital - heart disease [facility] and [place] (1 source.) graft (19487) Procedures Procedure Normalized Procedure Procedure Result Performer Facility Date 09-04-2017 48 hour ambulatory no information LIZZIE Bosch Via [facility] - electrocardiographic [place] (0000 0) 09-04-2017 monitoring - 09-04-2017 08-28-2018 [facility] [place] Via [facility] ([id number]) 09-18-2017 Echocardiography no information SREE CHUNG Via [facility] (78814) 08-28-2018 Esophagogastroduodenos no information TAKAAKI KIDO [place] Via [facility] (04466) 09-28-2017 Plain chest X-ray no information SREE CHUNG Vi a [facility] (26486) 09-26-2017 Radionuclide no information SREE CHUNG Via [facility] myocardial perfusion [place] (45157) study Immunizations Normalized Immunization Date Notes Care Provider Facili ty Immunization Vaccination no information LIZZIE ESPITIA Via [facility]ital Translations: [ [address] [place] (86508) vaccine] Results Test Name Value Interpretation Reference Range Date Time Fa cility (Normalized) (Normalized) (Medline Reference) venous blood hemoglobin measurement (mass/volume) on 2017-09-28 Hemoglobin (HGB) 12.4 g/dL (L) 12 - 18 g/dL Via [facility] (95823) urine urobilinogen measurement by automated test strip (mass/volume) on 2017-09-28 Urine, 4 (*) [facility]rob[facility]ogen [facility] () urine total bilirubin detection by test strip on 2017-09-28 Urine, bilirubin 1+ (*) Via [facility] () urine protein assay by test strip, semi-quantitativ e on 2017-09-28 Urine, protein 1+ (*) Via [facility] () urine ph measurement by test strip on 2017-09-28 Urine, pH 5 [pH] (no code) 4.6 - 8 [pH] Via [facility] (44577) urine nitrite detection by test strip on 2017-09-28 Urine, nitrite no information (no code) Via [facility] () urine ketones detection by automated test strip on 2017-09-28 Urine, ketones 1+ (*) Via [facility] () urine glucose detection by automated test strip on 2017-09-28 Urine, glucose no information (no code) Via [facility] () urine color determination on 2017-09-28 Urine, color BROWN (*) Via [facility] () urine clarity determination on 2017-09-28 Urine, clarity CLEAR (no code) Via [facility] () specific gravity of urine by test strip on 2017-09-28 Urine, specific 1.025 (*) Via [facility] gravity [facility] () serum or plasma urea nitrogen/creatin ine mass ratio on 2017-09-28 BUN/Creatinine 13 mg/mg (no code) 10 - 20 mg/mg Via [facility] sti Ratio [facility] (06473) serum or plasma urea nitrogen measurement (mass/volume) on 2017-09-28 Urea nitrogen 18 mg/dL (no code) 7 - 20 mg/dL Via [facility] (89584) serum or plasma total bilirubin measurement (mass/volume) on 2017-09-28 Bilirubin 0.3 mg/dL (no code) 0.3 - 1.9 mg/dL Via [facility] (total) [facility] (91703) serum or plasma sodium measurement (moles/volume) on 2017-09-28 Sodium 144 mmol/L (no code) 135 - 147 mmol/L Via [facility] (20688) serum or plasma protein measurement (mass/volume) on 2017-09-28 Protein 6.6 g/dL (no code) 6.4 - 8.3 g/dL Via [facility] (03305) serum or plasma potassium measurement (moles/volume) on 2017-09-28 Potassium 4.2 mmol/L (no code) 3.5 - 5.1 mmol/L Via [facility] (01346) serum or plasma glucose measurement (mass/volume) on 2017-09-28 Glucose 111 mg/dL (H) 60 - 125 mg/dL Via [facility] (37874) serum or plasma creatinine measurement with calculation of estimated glomerular filtration rate on 2017-09-28 eGFR (non-black) 50 (no code) 90 - [id number] Via [facility] mL/min/{1.73_m2} mL/min/{1.73_m2} [facility] (25004) serum or plasma creatinine measurement (mass/volume) on 2017-09-28 Creatinine 1.37 mg/dL (H) Via [facility] (66847) serum or plasma chloride measurement (moles/volume) on 2017-09-28 Chloride 111 mmol/L (H) 95 - 106 mmol/L Via [facility] (57701) serum or plasma calcium measurement (mass/volume) on 2017-09-28 Calcium 9.6 mg/dL (no code) 9 - 11 mg/dL Via [facility] (45222) serum or plasma aspartate aminotransferase measurement (enzymatic activity/volume) on 2017-09-28 Aspartate 14 U/L (no code) 10 - 34 U/L Via [facility] aminotransferase [facility] (AST) [place] (39888) serum or plasma anion gap determination (moles/volume) on 2017-09-28 Anion gap 10 mmol/L (no code) 3 - 11 mmol/L Via [facility] (95142) serum or plasma alkaline phosphatase measurement (enzymatic activity/volume) on 2017-09-28 Alkaline 52 U/L (no code) 44 - 147 U/L Via [facility] phosphatase [facility] (ALP) [place] (02103) serum or plasma albumin measurement (mass/volume) on 2017-09-28 Albumin 4.0 g/dL (no code) 3.5 - 5.5 g/dL Via [facility] (73337) serum or plasma alanine aminotransferase measurement (enzymatic activity/volume) on 2017-09-28 Alanine 14 U/L (no code) 10 - 40 U/L Via [facility] aminotransferase [facility] (ALT) [place] (10364) prothrombin time (pt) in platelet poor plasma by coagulation assay on 2017-09-28 Coagulation 13.7 s (no code) Via [facility] tissue factor [facility] induced in [place] platelet poor (35012) plasma mucus detection in urine sediment by light microscopy on 2017-09-28 Urine, mucus SMALL (*) Via [facility] in [facility] sediment [place] (21336) leukocyte esterase on 2017-09-28 Urine, leukocyte 1+ (*) Via [facility] esterase [facility] () inr in platelet poor plasma or blood by coagulation assay on 2017-09-28 INR in blood by 1.1 {INR} (no code) 0.9 - 1.1 {INR} Via [facility] coagulation [facility] (13140) hyaline casts detection in urine sediment by light microscopy on 2017-09-28 Urine, hyaline no information (*) Via [facility] casts [facility] in [facility] (63038) erythrocytes detection in urine sediment by light microscopy on 2017-09-28 Urine, 3+ (*) Via [facility] erythrocytes [facility] () crystals detection in urine sediment by light microscopy on 2017-09-28 Urine, crystals NONE (no code) Via [facility] in [facility] sediment [place] ([address]224) complete urinalysis with reflex to culture on 2017-09-28 Complete YES (no code) Via [facility] urinalysis with Hospital reflex to [place] culture (84121) casts detection in urine sediment by light microscopy on 2017-09-28 Urine, casts in PRESENT (no code) Via [facility] sediment [facility] (58297) carbon dioxide on 2017-09-28 CO2 23 mmol/L (no code) 23 - 29 mmol/L Via [facility] (66579) blood leukocytes automated count (number/volume) on 2017-09-28 WBC (Leukocytes) 6.1 10*3/uL (no code) 3.8 - 10.8 Via [facility] ti 10*3/uL [facility] (25799) blood hematocrit (volume fraction) on 2017-09-28 Hematocrit (HCT) 37 % (L) 39 - 51 % Via [facility] (47065) blood erythrocytes automated count (number/volume) on 2017-09-28 Erythrocytes 3.86 10*6/uL (L) 4.2 - 6.1 Via [facility] (RBC) 10*6/uL [facility] (76231) bacterial urine culture on 2017-09-28 Urine culture, Organism: SENT (no code) Via [facility] bacteria TO [facility] (87109) bacteria detection in urine sediment by light microscopy on 2017-09-28 Urine, bacteria TRACE (no code) Via [facility] in sediment [facility] (80871) automated urine sediment leukocyte count by microscopy (number/high power field) on 2017-09-28 Urine, no information (no code) Via [facility]49857[facility] automated urine sediment erythrocyte count by microscopy (number/high power field) on 2017-09-28 Urine, no information (*) Via [facility] erythrocytes in [facility] sediment by [facility] (04489) automated erythrocyte mean corpuscular volume on 2017-09-28 MCV 97 fL (no code) 80 - 100 fL Via [facility] (67789) automated erythrocyte mean corpuscular hemoglobin concentration measurement (mass/volume) on 2017-09-28 MCHC 33 g/dL (no code) 32 - 36 g/dL Via [facility] (25614) automated erythrocyte mean corpuscular hemoglobin (mass per erythrocyte) on 2017-09-28 MCH 32 pg (no code) 27 - 31 pg Via [facility] (90254) automated erythrocyte distribution width ratio on 2017-09-28 RDW-CA 15.1 % (H) 11 - 15 % Via [facility] (26364) automated blood platelet mean volume measurement on 2017-09-28 Platelet mean 10.3 fL (no code) 7.2 - 11.[address] [facility] (48809) automated blood platelet count (count/volume) on 2017-09-28 Platelets 204 10*3/uL (no code) 150 - 400 Via [facility] 10*3/uL [facility] (67278) activated partial thromboplastin time (aptt) in platelet poor plasma bycoagulation assay on 2017-09-28 aPTT 31 s (no code) 25 - 35 s Via [facility] (55824) Vital Signs The data below is from unstructured sources Vital Response Date/Time Temperature (Fahrenheit) 96.9 degree s F (97.6 - 99.5) 09/28/2017 1:15pm Temperature (Calculated Celsius) 36. 60158 degrees C (36.4 - 37.5) 09/28/2017 9:56am Temperature Source Temporal 09/28/2017 1:15pm Pulse Rate (adult) 67 bpm (60 - 90) 09/28/2017 1:15pm Respiratory Rate 15 bpm (12 - 24) 09/28/2017 1:15pm O2 Sat by Pulse Oximetry 97 % (88 - 100) 09/28/2017 1:15pm Blood Pressure 116/80 mm Hg 09/28/2017 1:15pm Blood Pressure Mean 92 mm Hg (65 - 110) 09/28/2017 12:00pm Pain Numeric Pain Scale 0-No Pain 09/28/2017 1:15pm Height (Feet) 5 feet 04/2017 7:31am Height (Inches) 11.00 inches 09/28/2017 7:31am Height (Calculated Centimeters) 180. 603486 cm 09/28/2017 7:31am Weight (Pounds) 196 pounds 09/28/2017 7:31am Weight (Ounces) 0.0 oz 0 09/28/2017 7:31am Weight (Calculated Grams) 98915.11 gm 09/28/2017 7:31am Weight (Calculated Kilograms) 88.904 105 kilograms 09/28/2017 7:31am Calculated BMI 27.3 04/2017 7:31am Weight Measurement Method Standing Scale 09/26/2017 7:38am Capillary Refill Capillary Refill Less Than 3 Seconds 09/28/2017 1:00pm Vital Response Date/Time Height (Feet) 5 feet 3:16pm Height (Inches) 11.00 inches 08/26/2018 3:16pm Height (Calculated Centimeters) 180. 940804 cm 08/26/2018 3:16pm Weight (Pounds) 196 pounds 08/26/2018 3:16pm Weight (Ounces) 0.0 oz 0 08/26/2018 3:16pm Weight (Calculated Grams) 82677.11 gm 08/26/2018 3:16pm Weight (Calculated Kilograms) 88.904 105 kilograms 08/26/2018 3:16pm Calculated BMI 27.3 07/30 3:16pm Vital Response Date/Time Temperature (Fahrenheit) 98.3 degree s F (97.6 - 99.5) 08/28/2018 4:00pm Temperature (Calculated Celsius) 36. 39391 degrees C (36.4 - 37.5) 08/28/2018 4:00pm Temperature Source Tympanic 08/28/2018 4:00pm Pulse Rate (adult) 69 bpm (60 - 90) 08/28/2018 4:00pm Respiratory Rate 20 bpm (12 - 24) 08/28/2018 4:00pm O2 Sat by Pulse Oximetry 97 % (88 - 100) 08/28/2018 4:00pm Blood Pressure 132/75 mm Hg 08/28/2018 4:00pm Blood Pressure Mean 93 mm Hg (65 - 110) 08/28/2018 3:15pm Pain Numeric Pain Scale 0-No Pain 08/28/2018 4:00pm Pain Intensity 0 2018 3:50pm Height (Feet) 5 feet 04/2018 1:17pm Height (Inches) 11.00 inches 08/28/2018 1:17pm Height (Calculated Centimeters) 180. 132325 cm 08/28/2018 1:17pm Weight (Pounds) 196 pounds 08/28/2018 1:17pm Weight (Ounces) 0.0 oz 0 08/28/2018 1:17pm Weight (Calculated Grams) 18934.11 gm 08/28/2018 1:17pm Weight (Calculated Kilograms) 88.904 105 kilograms 08/28/2018 1:17pm Calculated BMI 27.3 04/2018 1:17pm Vital Response Date/Time Temperature (Fahrenheit) 98.3 degree s F (97.6 - 99.5) 08/28/2018 4:00pm Temperature (Calculated Celsius) 36. 12547 degrees C (36.4 - 37.5) 08/28/2018 4:00pm Temperature Source Tympanic 08/28/2018 4:00pm Pulse Rate (adult) 69 bpm (60 - 90) 08/28/2018 4:00pm Respiratory Rate 20 bpm (12 - 24) 08/28/2018 4:00pm O2 Sat by Pulse Oximetry 97 % (88 - 100) 08/28/2018 4:00pm Blood Pressure 132/75 mm Hg 08/28/2018 4:00pm Blood Pressure Mean 93 mm Hg (65 - 110) 08/28/2018 3:15pm Pain Numeric Pain Scale 0-No Pain 08/28/2018 4:00pm Pain Intensity 0 2018 3:50pm Height (Feet) 5 feet 04/2018 1:17pm Height (Inches) 11.00 inches 08/28/2018 1:17pm Height (Calculated Centimeters) 180. 719294 cm 08/28/2018 1:17pm Weight (Pounds) 196 pounds 08/28/2018 1:17pm Weight (Ounces) 0.0 oz 0 08/28/2018 1:17pm Weight (Calculated Grams) 32993.11 gm 08/28/2018 1:17pm Weight (Calculated Kilograms) 88.904 105 kilograms 08/28/2018 1:17pm Calculated BMI 27.3 04/2018 1:17pm Interventions No Information Plan of Treatment The data below is from unstructured sources Discharge Date 05/26/16 5:45pm Disposition 01 HOME, SELF-CARE Condition at Discharge Stable/Unchan ged Instructions/Education Provided Acut e Abdomen (Belly Pain), Adult (DC) Prescriptions See Medication Section Referrals LIZZIE ESPITIA DO - [facility] Physician Additional Instructions/Education Al l discharge instructions reviewed with patient and/or family. Voiced understanding. Resume your previous regimen including naproxen. If pain increases return to the ER. Discharge Date 09/28/17 1:15pm Instructions/Education Provided CARD IAC CATH DISCHARGE INSTRUC Prescriptions See Medication Section Discharge Date 08/26/18 4:07pm Prescriptions See Medication Section Discharge Date 08/28/18 4:00pm Instructions/Education Provided EGD- ESOPHAGOGASTRODUODENOSCOPY Colon Polypectomy Prescriptions See Medication Section Discharge Date 08/28/18 4:00pm Instructions/Education Provided EGD- ESOPHAGOGASTRODUODENOSCOPY Colon Polypectomy Prescriptions See Medication Section Goals No Information Social History No Information Functional Status The data below is from unstructured sourcesNo functional status results.No functional status information available.No functional status information available.No functional status information available.No functional status information available.No functional status information available.No functional status information available. Mental Status No Information Encounters Encounter Normalized Encounter Encounter Diagnosis Care Provi nancy Organization Date Type 08-28-2018 Admission to day no information [email or web address] Work no organization name - surgery (no phone ) 08-28-2018 09-28-2017 Admission to day no information ELENAKECIA [facility] [employer] Work no organization name - surgery (no phone ) 09-28-2017 09-28-2017 Patient encounter no information no name (no phone) no organization name - (no phone) 09-28-2017 09-26-2017 Patient encounter no information SREE STOREYJI Wor k no organization name (no phone) 09-18-2017 Patient encounter no information SREE Gaines k no organization name (no phone) 09-11-2017 Patient encounter no information LIZZIE ESPITIA no organization name - Work Phone: (no phone) 09-11-2017 09-04-2017 Patient encounter no information LIZZIE ESPITIA no organization name Work Phone: (no phone) 04-21-2013 Patient encounter no information no name (no phone) no organization name (no phone) 03-31-2013 Patient encounter no information no name (no phone) no organization name (no phone) 08-28-2018 Patient encounter no information no name (no phone) no organization name - procedure (no phone) 08-28-2018 08-28-2018 Patient encounter no information no name (no phone) no organization name - procedure (no phone) 08-28-2018 08-26-2018 Patient encounter no information [employer] Work no organization name - procedure (no phone ) 08-26-2018 [employer] 08-04-2011 Patient encounter no information no name (no phone) no organization name - procedure (no phone) 08-04-2011 08-02-2011 Patient encounter no information no name (no phone) no organization name procedure (no phone) no information Pre-procedural no name (no phone) no organiza tion name laboratory examination (no phone) no information Pre-operative no name (no phone) no organiza tion name examination, (no phone) unspecified no information Encounter for other no name (no phone) no org anization name preprocedural (no phone) examination Medical Equipment No Information Payers Normalized Payer Value Medicare [id number] ([id number]) Advance Directives Directive Response Recor ded Date/Time Advance Directives Yes 1 06/22/12 10:31am Health Care Power of Cloth Examiner No 04/21/13 10:31am Organ Donor Yes 04/21/13 10:31am Directive Response Recor ded Date/Time Advance Directives Yes 0 09/28/17 7:15am Health Care Power of Cloth Examiner No 09/28/17 7:15am Organ Donor Yes 09/28/17 7:15am Resuscitation Status Full Code 09/28/17 7:15am Directive Response Recor ded Date/Time Advance Directives Yes 0 08/26/18 3:16pm Health Care Power of Cloth Examiner No 08/26/18 3:16pm Organ Donor Yes 08/26/18 3:16pm Resuscitation Status Full Code 08/26/18 3:16pm Directive Response Recor ded Date/Time Advance Directives Yes 0 08/28/18 1:08pm Health Care Power of Cloth Examiner No 08/28/18 1:08pm Organ Donor Yes 08/28/18 1:08pm Resuscitation Status Full Code 08/28/18 1:08pm Discharge Instructions No hospital discharge instructions.No hospital discharge instruction information available.No hospital discharge instruction information available.No hospital discharge instruction information available. Additional Source Comments This clinical document has been generated using [employer] software that has been certified by the Office of the National Coordinator for Health Information Technology (ONC 15.99.04.3023.Diam.[id number]) and the National Committee for [employer] Manager (NCQA, as an eMeasure certified technology). FOR RECORDS PERTAINING TO PATIENTS WHO ARE OR HAVE BEEN ENROLLED IN A CHEMICAL D EPENDENCY/SUBSTANCE ABUSE PROGRAM, SOME INFORMATION MAY BE OMITTED. This clinica l summary was aggregated from multiple sources. Caution should be exercised in using it in the provision of clinical care. This summary normalizes information from multiple sources, and as a consequence, information in this document may ma terially change the coding, format and clinical context of patient data. In lauren tion, data may be omitted in some cases. CLINICAL DECISIONS SHOULD BE BASED ON T HE PRIMARY CLINICAL RECORDS. [facility]. provides no warranty or guara ntee of the accuracy or completeness of information in this document.The followi ng information is based on time limited clinical information
== END 2019-08-27 17:52 | disposition home or self-care (01) ==
LOC: EDUNIT# 16:46 → ER 16:48
DX: S39.012A Strain of muscle, fascia and tendon of lower back, initial encounter (principal); I10 Essential (primary) hypertension; I25.10 Atherosclerotic heart disease of native coronary artery without angina pectoris; F17.210 Nicotine dependence, cigarettes, uncomplicated; Z88.1 Allergy status to other antibiotic agents; Z95.5 Presence of coronary angioplasty implant and graft; Z88.8 Allergy status to other drugs, medicaments and biological substances; Z79.02 Long term (current) use of antithrombotics/antiplatelets; V49.40XA Driver injured in collision with unspecified motor vehicles in traffic accident, initial encounter
CPT/HCPCS: 99282

== ENCOUNTER 2020-09-21 12:05 | Outpatient (RCR) | payer MEDICARE, OTHER ==
[~2020-09-21 12:05] MED LIST changes: -LISI10TA2 PO; +LISI10TA25 PO; -PANT40TA3 PO; +PANT40TA52 PO
== END 2020-12-20 | disposition home or self-care (01) ==
LOC: CARD 12:05
PROVIDERS: ATTEND Internal Medicine
DX: I47.2 Ventricular tachycardia (principal)

== ENCOUNTER → 2021-03-23 | Outpatient (CLI) | payer MEDICARE, OTHER ==
--- NOTE | 2021-03-23 08:49 | Diagnostic Imaging Report ---
Indication: Follow-up abdominal aortic aneurysm repair The proximal abdominal aorta measures 2.1 x 2.4 cm. Mid abdominal aorta measures 2.7 x 3.0 cm. Distal abdominal aorta measures 2.2 x 2.9 cm. The right iliac artery measures 1.7 x 2.2 cm. Left iliac measures 1.7 x 2.0 cm. 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 There is no evidence for endoleak by ultrasound. IMPRESSION: Follow-up ultrasound abdominal aorta does not show any evidence for endoleak. Dictated by: Dictated on workstation # [id number]
== END ==
LOC: RAD 08:15
PROVIDERS: ATTEND Internal Medicine
DX: I71.4 Abdominal aortic aneurysm, without rupture (principal); Z98.890 Other specified postprocedural states
CPT/HCPCS: 76775